=== PATIENT | female | born 1935 | race Caucasian/White ===

== ENCOUNTER 2020-03-03 22:12 | Observation (INO) | payer MEDICARE, OTHER ==
[2020-03-03] MEDS ORDERED: LORazepam 1 MG Tab PO ONE (22:53)
--- NOTE | 2020-03-03 22:56 | EDM.PDOC ---
ED HPI GENERAL MEDICAL PROBLEM - General Chief Complaint: General Stated Complaint: MED[facility] Time Seen by Provider: 03/03/20 22:51 Source of Information: Reports: Patient, EMS, RN Notes Reviewed History Limitations: Reports: No Limitations - History of Present Illness INITIAL COMMENTS - FREE TEXT/NARRATIVE: 84-year-old female presents emergency department a complaint of leg., She states she has a known history of restless leg syndrome and her restless legs have been exacerbated mainly today the point where it is uncomfortable and she cannot sleep, pain is been so intense at times that she has fallen she injured herself and has a large skin tear on her left elbow - Related Data Allergies Allergy/AdvReac Type Severity Reaction Status Date / Time tetracycline [Tetracycline] Allergy Itching Verified 11/01/17 09:09 alendronate sodium AdvReac Muscle Verified 11/01/17 09:09 [From Fosamax] Aches Home Meds: Home Meds Aspirin [Ania Chewable Aspirin] 81 mg PO DAILY 12/30/12 [History] Lisinopril [Zestril] 40 mg PO DAILY 12/30/12 [History] Multivitamin [Multivitamins] 1 each PO DAILY 12/30/12 [History] Vitamin B Complex 1 each PO DAILY 12/30/12 [History] Vitamin E (Dl,Tocopheryl Acet) [Vitamin E] 400 units PO DAILY 12/30/12 [History] Calcium Carbonate/Vitamin D3 [Calcium 500-Vit D3 125 Caplet] 1 tab PO BID 01/07/13 [History] Carbidopa/Levodopa [Carbidopa-Levodopa 25-100] 1 tab PO TID 03/03/20 [History] Celecoxib [CeleBREX] 200 mg PO DAILY 03/03/20 [History] Ferrous Gluconate [Fergon] 225 mg PO DAILY 03/03/20 [History] Furosemide [Lasix] 20 - 80 mg PO DAILY 03/03/20 [History] clonazePAM [Clonazepam] 1 tab PO BID 03/03/20 [History] guaiFENesin [Mucinex] 600 mg PO BID 03/03/20 [History] methazolAMIDE [Methazolamide] 50 mg PO TID 03/03/20 [History] Past Medical History HEENT History: Reports: Cataract Cardiovascular History: Reports: Hypertension 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 Musculoskeletal History: Reports: Osteoarthritis, Other (See Below) (Restless leg syndrome) - Infectious Disease History Infectious Disease History: Reports: Chicken Pox Social & Family History - Family History Family Medical History: No Pertinent Family History - Tobacco Use Tobacco Use Status *Q: Never Tobacco User ED ROS GENERAL - Review of Systems Review Of Systems: See Below Constitutional: Reports: No Symptoms Musculoskeletal: Reports: Leg Pain ED EXAM, GENERAL - Physical Exam Exam: See Below Exam Limited By: No Limitations General Appearance: Alert, Mild Distress Extremities: Normal Inspection, Normal Range of Motion, Non-Tender, No Pedal Edema, Other (Pedal pulse +2) Course - Vital Signs Last Recorded V/S: Last Vital Signs Temp 95 F L 03/03/20 22: Pulse 94 03/03/20 22:26 Resp 20 03/03/20 22:26 BP 137/71 03/03/20 22:26 Pulse Ox 98 03/03/20 22:26 - Orders/Labs/Meds Labs: Laboratory Tests 03/03/20 03/03/20 Range/Units 23:00 23:00 WBC 9.4 (4.5-11.0) K/uL RBC 3.40 (3.30-5.50) M/uL Hgb 10.7 L D (12.0-15.0) g/dL Hct 34.0 L (36.0-48.0) % MCV 100 H (80-98) fL MCH 32 H (27-31) pg MCHC 32 (32-36) % Plt Count 360 (150-400) K/uL Neut % (Auto) 68 H (36-66) % Lymph % (Auto) 16 L (24-44) % [place] % (Auto) 11 H (2-6) % Eos % (Auto) 5 H (2-4) % Baso % (Auto) 0 (0-1) % Sodium 139 L (140-148) mmol/L Potassium 3.9 (3.6-5.2) mmol/L Chloride 104 (100-108) mmol/L Carbon Dioxide 25 (21-32) mmol/L Anion Gap 13.9 (5.0-14.0) mmol/L BUN 51 H D (7-18) mg/dL Creatinine 1.2 H (0.6-1.0) mg/dL Est Cr Clr Drug Dosing 21.69 mL/min Estimated GFR (MDRD) 43 L (>60) Glucose 91 (74-106) mg/dL Calcium 9.1 (8.5-10.1) mg/dL Meds: Medications Discontinued Medications Generic Name Dose Route Start Last Admin Trade Name Francesca PRN Reason Stop Dose Admin Lorazepam 1 mg 03/03/20 22:53 03/03/20 23:01 Ativan PO 03/03/20 22:54 1 mg ONETIME ONE Administration Departure - Departure Time of Disposition: 00:11 Disposition: Home, Self-Care 01 Condition: Fair Clinical Impression: Restless leg syndrome - Discharge Information Instructions: Restless Legs Syndrome Referrals: Johnson Jacobsen MD [Primary Care Provider] - Forms: ED Department Discharge Additional Instructions: Use the Ativan as needed for symptomatic relief on the night she had trouble getting to sleep because your restless legs, please followup with your primary care provider in 3-5 days if not better, please call return to the emergency department with worsening of symptoms. Sepsis Event Note (ED) - Evaluation Sepsis Screening Result: No Definite Risk - Focused Exam Vital Signs: Vital Signs Temp Pulse Resp BP Pulse Ox 03/03/20 22:26 95 F L 94 20 137/71 98 03/03/20 22:25 95 F L 94 20 137/71 98 - Assessment/Plan Plan: Assessment Acuity = acute Site and laterality = restless leg syndrome Etiology = unknown Manifestations = none Location of injury = Home Lab values = hemoglobin low at 10.7 consistent with macro chromic anemia, creatinine elevated 1.2 consistent chronic renal failure stage G3 B Plan She had good improvement with 1 mg Ativan provided in the emergency department prescription written for Ativan 1 mg p.o. nightly as needed total #10 follow-up primary care 3 to 5 days if not better This note was dictated using [employer] voice recognition software please call with any questions on syntax or grammar.
[2020-03-04] MEDS ORDERED: Carbidopa/Levodopa 25-100 MG Tab PO ONE (08:46)
--- NOTE | 2020-03-04 08:56 | PCM.HP.2 ---
H&P History of Present Illness - General Date of Service: 03/04/20 Admit Problem/Dx: Admission Diagnosis/Problem Admission Diagnosis/Problem Weakness Source of Information: Patient, Provider History Limitations: Reports: No Limitations - History of Present Illness Initial Comments - Free Text/Narative: CC: I have restless leg syndrome HPI: Joycelyn presented to the emergency room today after a fall and she had concerns about overactive restless leg syndrome. She reports this is her second fall in the past month or so. No preceding symptoms but she just became weak an d collapsed to the floor. She does not think she lost consciousness. She has a bruise on her left shoulder but is not complaining of any shoulder or arm pain. She does endorse intermittent achy pain in the right groin/proximal femur area. This has been going on for a while and comes and goes. No recent fevers or chills. Appetite and oral intake are reported as good though she does appear dehydrated. No complaints of cough or shortness of breath. No change in bowel or bladder habits. No sick contacts. She continues to live alone. She has been in the emergency room much of the night and did appear to sleep well though she does not think she slept very well. She was too weak to get up and ambulate safely so she will be admitted for observation and physical therapy. There is no evidence for infection at this time. - Related Data Allergies/Adverse Reactions: Allergies Allergy/AdvReac Type Severity Reaction Status Date / Time tetracycline [Tetracycline] Allergy Itching Verified 11/01/17 09:09 alendronate sodium AdvReac Muscle Verified 11/01/17 09:09 [From Fosamax] Aches Home Medications: Home Meds Aspirin [Ania Chewable Aspirin] 81 mg PO DAILY 12/30/12 [History] Lisinopril [Zestril] 40 mg PO DAILY 12/30/12 [History] Multivitamin [Multivitamins] 1 each PO DAILY 12/30/12 [History] Vitamin B Complex 1 each PO DAILY 12/30/12 [History] Vitamin E (Dl,Tocopheryl Acet) [Vitamin E] 400 units PO DAILY 12/30/12 [History] Calcium Carbonate/Vitamin D3 [Calcium 500-Vit D3 125 Caplet] 1 tab PO BID 01/07/13 [History] Carbidopa/Levodopa [Carbidopa-Levodopa 25-100] 1 tab PO TID 03/03/20 [History] Celecoxib [CeleBREX] 200 mg PO DAILY 03/03/20 [History] Ferrous Gluconate [Fergon] 225 mg PO DAILY 03/03/20 [History] Furosemide [Lasix] 20 - 80 mg PO DAILY 03/03/20 [History] clonazePAM [Clonazepam] 1 tab PO BID 03/03/20 [History] guaiFENesin [Mucinex] 600 mg PO BID 03/03/20 [History] methazolAMIDE [Methazolamide] 50 mg PO TID 03/03/20 [History] Past Medical History HEENT History: Reports: Cataract, Hard of Hearing, Impaired Vision Cardiovascular History: Reports: Hypertension 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 disorder of bone/cartilage Neurological History: Reports: Vertigo, Other (See Below) Other Neuro History: restless leg - Infectious Disease History Infectious Disease History: Reports: Chicken Pox - Past Surgical History Musculoskeletal Surgical History: Reports: Joint Replacement Social & Family History - Family History Family Medical History: No Pertinent Family History - Tobacco Use Tobacco Use Status *Q: Never Tobacco User - Alcohol Use Alcohol Use History: No - Recreational Drug Use Recreational Drug Use: No Drug Use in Last 12 Months: No H&P Review of Systems - Review of Systems: Review Of Systems: See Below Free Text/Narrative: A complete 12 point review of systems was obtained. Pertinent positives and negatives are noted in the history of present illness. All other systems were reviewed and were negative except as noted. Exam - Exam Exam: See Below - Vital Signs Vital Signs: Last Vital Signs Temp 35 C L 03/03/20 22:26 Pulse 82 03/04/20 00:05 Resp 18 03/04/20 00:05 BP 127/65 03/04/20 00:05 Pulse Ox 93 L 03/04/20 00:05 Weight: 40.823 kg - Exam Quality Assessment: No: Supplemental Oxygen General: Alert, Oriented, Cooperative. No: Mild Distress HEENT: Conjunctiva Clear. No: Mucosa Moist & [place] (dry), Scleral Icterus Neck: Supple, Trachea Midline. No: Lymphadenopathy, JVD Lungs: Clear to Auscultation, Normal Respiratory Effort Cardiovascular: Regular Rate, Regular Rhythm. No: Systolic Murmur GI/Abdominal Exam: Normal Bowel Sounds, Soft, Non-Tender, No Distention, No Mass Extremities: Pedal Edema. No: Increased Warmth Skin: Warm, Dry, Ecchymosis (left shoulder, left forearm, right wrist), Wound (skin tear left forearm near the elbow ) Neuro Extensive - Mental Status: Alert, Oriented x3, Nl Response to Commands Neuro Extensive - Motor, Sensory, Reflexes: No: Dysarthria, Facial Palsy (R), Facial palsy (L), Abnormal Motor, Tremor Psychiatric: Alert, Normal Affect - Patient Data Lab Results Last 24 hrs: Laboratory Results - last 24 hr 03/03/20 03/03/20 03/04/20 Range/Units 23:00 23:00 06:46 WBC 9.4 7.9 (4.5-11.0) K/uL RBC 3.40 3.34 (3.30-5.50) M/uL Hgb 10.7 L D 10.6 L (12.0-15.0) g/dL Hct 34.0 L 33.1 L (36.0-48.0) % MCV 100 H 99 H (80-98) fL MCH 32 H 32 H (27-31) pg MCHC 32 32 (32-36) % Plt Count 360 366 (150-400) K/uL Neut % (Auto) 68 H 67 H (36-66) % Lymph % (Auto) 16 L 15 L (24-44) % [place] % (Auto) 11 H 12 H (2-6) % Eos % (Auto) 5 H 5 H (2-4) % Baso % (Auto) 0 1 (0-1) % PT (9.5-12.0) sec INR (0.80-1.20) APTT (27.0-36.0) sec Sodium 139 L (140-148) mmol/L Potassium 3.9 (3.6-5.2) mmol/L Chloride 104 (100-108) mmol/L Carbon Dioxide 25 (21-32) mmol/L Anion Gap 13.9 (5.0-14.0) mmol/L BUN 51 H D (7-18) mg/dL Creatinine 1.2 H (0.6-1.0) mg/dL Est Cr Clr Drug Dosing 21.69 mL/min Estimated GFR (MDRD) 43 L (>60) Glucose 91 (74-106) mg/dL Lactic Acid (0.4-2.0) mmol/L Calcium 9.1 (8.5-10.1) mg/dL Iron (50-170) ug/dL TIBC (250-450) ug/dl % Saturation (20-55) % Total Bilirubin (0.2-1.0) mg/dL AST (15-37) U/L ALT (12-78) U/L Alkaline Phosphatase (46-116) U/L Troponin I (0.000-0.056) ng/mL Total Protein (6.4-8.2) g/dL Albumin (3.4-5.0) g/dL Globulin (2.3-3.5) g/dL Albumin/Globulin Ratio (1.2-2.2) 03/04/20 03/04/20 03/04/20 Range/Units 06:46 06:46 06:46 WBC (4.5-11.0) K/uL RBC (3.30-5.50) M/uL Hgb (12.0-15.0) g/dL Hct (36.0-48.0) % MCV (80-98) fL MCH (27-31) pg MCHC (32-36) % Plt Count (150-400) K/uL Neut % (Auto) (36-66) % Lymph % (Auto) (24-44) % [place] % (Auto) (2-6) % Eos % (Auto) (2-4) % Baso % (Auto) (0-1) % PT (9.5-12.0) sec INR (0.80-1.20) APTT (27.0-36.0) sec Sodium 143 (140-148) mmol/L Potassium 4.1 (3.6-5.2) mmol/L Chloride 107 (100-108) mmol/L Carbon Dioxide 26 (21-32) mmol/L Anion Gap 10.4 (5.0-14.0) mmol/L BUN 45 H (7-18) mg/dL Creatinine 1.1 H (0.6-1.0) mg/dL Est Cr Clr Drug Dosing 23.66 mL/min Estimated GFR (MDRD) 47 L (>60) Glucose 84 (74-106) mg/dL Lactic Acid 0.6 (0.4-2.0) mmol/L Calcium 9.1 (8.5-10.1) mg/dL Iron 67 (50-170) ug/dL TIBC 331 (250-450) ug/dl % Saturation 20 (20-55) % Total Bilirubin 0.6 (0.2-1.0) mg/dL AST 43 H D (15-37) U/L ALT 11 L (12-78) U/L Alkaline Phosphatase 122 H D (46-116) U/L Troponin I 0.020 (0.000-0.056) ng/mL Total Protein 6.7 (6.4-8.2) g/dL Albumin 3.3 L (3.4-5.0) g/dL Globulin 3.4 (2.3-3.5) g/dL Albumin/Globulin Ratio 1.0 L (1.2-2.2) 03/04/20 03/04/20 Range/Units 06:46 06:46 WBC (4.5-11.0) K/uL RBC (3.30-5.50) M/uL Hgb (12.0-15.0) g/dL Hct (36.0-48.0) % MCV (80-98) fL MCH (27-31) pg MCHC (32-36) % Plt Count (150-400) K/uL Neut % (Auto) (36-66) % Lymph % (Auto) (24-44) % [place] % (Auto) (2-6) % Eos % (Auto) (2-4) % Baso % (Auto) (0-1) % PT 10.3 (9.5-12.0) sec INR 0.94 (0.80-1.20) APTT 24.8 L (27.0-36.0) sec Sodium (140-148) mmol/L Potassium (3.6-5.2) mmol/L Chloride (100-108) mmol/L Carbon Dioxide (21-32) mmol/L Anion Gap (5.0-14.0) mmol/L BUN (7-18) mg/dL Creatinine (0.6-1.0) mg/dL Est Cr Clr Drug Dosing mL/min Estimated GFR (MDRD) (>60) Glucose (74-106) mg/dL Lactic Acid (0.4-2.0) mmol/L Calcium (8.5-10.1) mg/dL Iron (50-170) ug/dL TIBC (250-450) ug/dl % Saturation (20-55) % Total Bilirubin (0.2-1.0) mg/dL AST (15-37) U/L ALT (12-78) U/L Alkaline Phosphatase (46-116) U/L Troponin I (0.000-0.056) ng/mL Total Protein (6.4-8.2) g/dL Albumin (3.4-5.0) g/dL Globulin (2.3-3.5) g/dL Albumin/Globulin Ratio (1.2-2.2) Result Diagrams: 03/04/20 06:46 03/04/20 06:46 Imaging Impressions Last 24 hrs: XR right hip/thigh-images personally reviewed-bilateral hip arthroplasties. No obvious loosening of hardware. No dislocation. No pelvis fx. Sepsis Event Note - Evaluation Sepsis Screening Result: No Definite Risk - Focused Exam Vital Signs: Vital Signs Temp Pulse Resp BP Pulse Ox 03/04/20 00:05 82 18 127/65 93 L 03/03/20 22:26 35 C L 94 20 137/71 98 03/03/20 22:25 35 C L 94 20 137/71 98 *Q Meaningful Use (ADM) - VTE Risk Assess *Q Each Risk Factor Represents 1 Point: Swollen Legs, Current Total Score 1 Point Risk Factors: 1 Each Risk Factor Represents 2 Points: Malignancy (present or previous) Total Score 2 Point Risk Factors: 2 Each Risk Factor Represents 3 Points: Age 75 Years or Greater Total Score 3 Point Risk Factors: 3 Each Risk Factor Represents 5 Points: None Total Score 5 Point Risk Factors: 0 Venous Thromboembolism Risk Factor Score *Q: 6 - Problem List (1) Weakness generalized SNOMED Code(s): 77681717 ICD Code: R53.1 - WEAKNESS Status: Acute Current Visit: Yes (2) Fall SNOMED Code(s): 9927634, 601289849 ICD Code: W19.XXXA - UNSPECIFIED FALL, INITIAL ENCOUNTER Status: Acute Current Visit: Yes Qualifiers: Encounter type: initial encounter Qualified Code(s): W19.XXXA - Unspecified fall, initial encounter (3) Restless leg syndrome SNOMED Code(s): 26652175 ICD Code: G25.81 - RESTLESS LEGS SYNDROME Status: Chronic Current Visit: Yes Problem List Initiated/Reviewed/Updated: Yes Orders Last 24hrs: Active Orders 24 hr Category Date Time Status Patient Status Manage Transfer [TRANSFER] Routine ADT 03/04/20 08:47 Ordered Hip Min 2V or 3V w Pelvis Rt [CR] Stat Exams 03/04/20 05:08 Taken Sodium Chloride 0.9% [Normal Saline] 1,000 ml Med 03/04/20 09:00 Active IV ASDIRECTED Resuscitation Status Routine Resus Stat 03/04/20 08:49 Ordered Medication Orders Sodium Chloride (Normal Saline) 1,000 mls @ 125 mls/hr IV ASDIRECTED REYNA Stop: 03/04/20 17:01 Assessment/Plan Comment:: ASSESSMENT AND PLAN - Generalized weakness with recurrent falls-2 falls in the past month. Minor i njuries and mostly bruising of the left arm and a skin tear of the left arm. Patient is weak and wobbly on her feet. She has been doing some outpatient physical therapy for the past couple of weeks. No evidence for infection that I can find. She does appear little bit dehydrated and hopefully some fluids will help improve her strength and energy. -1 L of IV fluids -Physical therapy Restless leg syndrome-patient reports increased difficulties. She does admit that she does not take her Sinemet regularly and when she does it has been fairly well controlled. Iron studies are acceptable. She has previously tried ropinirole and pramipexole. -Continue Sinemet -Consider trial of gabapentin Stage III chronic kidney disease-creatinine near recent baseline. There is some evidence for at least mild dehydration. -IV fluids as above Maintenance issues - - DVT prophylaxis -mechanical - GI prophylaxis -not indicated - Nutrition -regular - Aguilar catheter -not indicated CODE STATUS -DNR/DNI Admission justification -patient will be referred observation status for physical therapy and additional observation Disposition -I would anticipate discharge home with home care Primary care physician -Dr Richie Clarke M.D. - Mortality Measure Prognosis:: Good
[2020-03-04] MEDS ORDERED: Sodium Chloride 0.9% 1,000 ML IV SCH (09:00)
--- NOTE | 2020-03-04 09:17 | CR ---
Hip Min 2V or 3V w Pelvis Rt CLINICAL HISTORY: Fall, pain FINDINGS: Patient has a severe S-shaped scoliosis with lumbar convexity to the right. There are severe degenerative changes. 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 Components appear well seated. IMPRESSION: No acute fracture Scoliosis and severe degenerative changes lumbar spine Bilateral hip hemiarthroplasties appear intact
[2020-03-04] MEDS ORDERED: traMADol 50 MG Tab PO PRN (09:18)
[2020-03-04] MEDS ORDERED: LORazepam 2 MG/ML SDV IVPUSH PRN (09:18)
[2020-03-04] MEDS ORDERED: Ondansetron 4 MG Tab.DIS PO PRN (09:18)
[2020-03-04] MEDS ORDERED: Magnesium Hydroxide 400 MG/5 ML Susp 30 ML Cup PO PRN (09:18)
[2020-03-04] MEDS ORDERED: Ondansetron 4 MG/2 ML SDV IV PRN (09:18)
[2020-03-04] MEDS ORDERED: Lisinopril 20 MG Tab PO SCH (10:00)
[2020-03-04] MEDS ORDERED: ClonazePAM 0.5 MG Tab PO SCH (10:00)
[2020-03-04] MEDS ORDERED: Celecoxib 200 MG Cap PO SCH (10:00)
[2020-03-04] MEDS: Carbidopa/Levodopa 25-100 MG Tab (PTOM) PO SCH ×3 (10:47→20:14)
[2020-03-04] MEDS: Aspirin 81 MG Tab.Chew PO SCH (10:48)
[2020-03-04] MEDS: Ferrous Sulfate 325 MG Tab PO SCH (10:48)
[2020-03-04] MEDS: Vitamin B Complex Tab PO SCH (10:48)
[2020-03-04] MEDS ORDERED: ClonazePAM 0.5 MG Tab PO PRN (15:30)
[2020-03-04] MEDS: Melatonin 3 MG Tab PO SCH (20:13)
[2020-03-05] MEDS: Carbidopa/Levodopa 25-100 MG Tab (PTOM) PO SCH ×6 (00:02→21:13)
[2020-03-05] MEDS: Ferrous Sulfate 325 MG Tab PO SCH (08:43)
[2020-03-05] MEDS: Vitamin B Complex Tab PO SCH (08:43)
[2020-03-05] MEDS: Aspirin 81 MG Tab.Chew PO SCH (08:43)
[2020-03-05] MEDS: LISINOPRIL 40MG TAB (PTOM) PO SCH (08:45)
[2020-03-05] MEDS ORDERED: CELECOXIB 200 MG PO SCH (09:00)
--- NOTE | 2020-03-05 09:47 | PCM.PN ---
- General Info Date of Service: 03/05/20 Subjective Update: There were no acute events overnight. Patient slept well. Restless legs are fairly well controlled as long as she takes her Sinemet about every 4 hours. She has not had any fevers. No evidence to support infection. No abdominal pain or nausea. She is quite weak and requires the assist of 2 people. Functional Status: Reports: Pain Controlled, Tolerating Diet - Review of Systems General: Reports: Weakness - Patient Data Vitals - Most Recent: Last Vital Signs Temp 36.4 C 03/05/20 07:00 Pulse 67 03/05/20 07:00 Resp 18 03/05/20 07:00 BP 136/52 L 03/05/20 07:00 Pulse Ox 96 03/05/20 07:00 Weight - Most Recent: 40.823 kg I&O - Last 24 Hours: Intake & Output 03/04/20 03/05/20 03/05/20 22:59 06:59 14:59 Intake Total 480 Output Total 225 85 400 Balance 255 -85 -400 Med Orders - Current: Current Medications Acetaminophen (Tylenol) 650 mg PO Q4H PRN PRN Reason: Pain (Mild 1-3)/fever Aspirin (Aspirin) 81 mg PO DAILY [facility] Last Admin: 03/05/20 08:43 Dose: 81 mg Documented by: Carbidopa/Levodopa (Sinemet 25-100 Mg) 1 tab PO 5XDAY [facility] Celecoxib (Celebrex) 200 mg PO DAILY [facility] Last Admin: 03/05/20 08:45 Dose: 200 mg Documented by: Clonazepam (Klonopin) 0.5 mg PO BID PRN PRN Reason: Agitation Ferrous Sulfate (Ferrous Sulfate) 325 mg PO DAILY [facility] Last Admin: 03/05/20 08:43 Dose: 325 mg Documented by: Lorazepam (Ativan) 0.5 mg IVPUSH Q4H PRN PRN Reason: Nausea/Vomiting Magnesium Hydroxide (Milk Of Magnesia) 30 ml PO Q12H PRN PRN Reason: Constipation Melatonin (Melatonin) 9 mg PO BEDTIME [facility] Last Admin: 03/04/20 20:13 Dose: 9 mg Documented by: Methazolamide (Methazolamide) 50 mg PO TID [facility] Last Admin: 03/05/20 08:46 Dose: 50 mg Documented by: Ondansetron HCl (Zofran) 4 mg IV Q6H PRN PRN Reason: Nausea/Vomiting Ondansetron HCl (Zofran Odt) 4 mg PO Q6H PRN PRN Reason: Nausea able to take PO Lisinopril 40mg Tab ((Ptom)) 0 each PO DAILY [facility] Last Admin: 03/05/20 08:45 Dose: 1 each Documented by: Tramadol HCl (Ultram) 50 mg PO Q6H PRN PRN Reason: Pain (moderate 4-6) Vitamin B Complex (Vitamin B Complex) 1 each PO DAILY [facility] Last Admin: 03/05/20 08:43 Dose: 1 each Documented by: Discontinued Medications Carbidopa/Levodopa (Sinemet 25-100 Mg) 1 tab PO ONETIME ONE Stop: 03/04/20 08:47 Last Admin: 03/04/20 08:55 Dose: 1 tab Documented by: Carbidopa/Levodopa (Sinemet 25-100 Mg) 1 tab PO TID [facility] Last Admin: 03/05/20 08:45 Dose: 1 tab Documented by: Celecoxib (Celebrex) 200 mg PO DAILY [facility] Last Admin: 03/04/20 10:48 Dose: 200 mg Documented by: Clonazepam (Klonopin) 0.5 mg PO BID [facility] Last Admin: 03/04/20 10:49 Dose: Not Given Documented by: Sodium Chloride (Normal Saline) 1,000 mls @ 125 mls/hr IV ASDIRECTED [facility] Stop: 03/04/20 17:01 Last Admin: 03/04/20 10:50 Dose: 125 mls/hr Documented by: Lisinopril (Prinivil) 40 mg PO DAILY [facility] Last Admin: 03/04/20 10:49 Dose: 40 mg Documented by: Lorazepam (Ativan) 1 mg PO ONETIME ONE Stop: 03/03/20 22:54 Last Admin: 03/03/20 23:01 Dose: 1 mg Documented by: Senna/Docusate Sodium (Senna Plus) 1 tab PO BID PRN PRN Reason: Constipation - Exam Quality Assessment: No: Supplemental Oxygen General: Alert, Oriented, Cooperative, No Acute Distress Lungs: Normal Respiratory Effort Cardiovascular: Regular Rate, Regular Rhythm GI/Abdominal Exam: Soft, No Distention Extremities: No Pedal Edema Psy/Mental Status: Alert, Normal Affect Sepsis Event Note - Evaluation Sepsis Screening Result: No Definite Risk - Focused Exam Vital Signs: Vital Signs Temp Pulse Resp BP Pulse Ox 03/05/20 07:00 36.4 C 67 18 136/52 L 96 03/05/20 03:00 36.9 C 77 16 125/65 96 03/04/20 23:00 37.1 C 91 16 122/52 L 95 - Problem List & Annotations (1) Weakness generalized SNOMED Code(s): 05313812 Code(s): R53.1 - WEAKNESS Status: Acute Current Visit: Yes (2) Fall SNOMED Code(s): 9274004, 733748592 Code(s): W19.XXXA - UNSPECIFIED FALL, INITIAL ENCOUNTER Status: Acute Current Visit: Yes Qualifiers: Encounter type: initial encounter Qualified Code(s): W19.XXXA - Unspecified fall, initial encounter (3) Restless leg syndrome SNOMED Code(s): 27165850 Code(s): G25.81 - RESTLESS LEGS SYNDROME Status: Chronic Current Visit: Yes - Problem List Review Problem List Initiated/Reviewed/Updated: Yes - My Orders Last 24 Hours: My Active Orders 03/04/20 08:49 Resuscitation Status Routine 03/04/20 09:18 Acetaminophen [TylenoL] 650 mg PO Q4H PRN LORazepam [Ativan] 0.5 mg IVPUSH Q4H PRN Magnesium Hydroxide [Milk of Magnesia] 30 ml PO Q12H PRN Ondansetron [Zofran ODT] 4 mg PO Q6H PRN Ondansetron [Zofran] 4 mg IV Q6H PRN traMADol [Ultram] 50 mg PO Q6H PRN 03/04/20 09:18 Patient Status [ADT] Routine Antiembolic Devices [RC] .Routine Intake and Output [RC] QSHIFT Notify Provider Vital Signs [RC] ASDIRECTED Oxygen Therapy [RC] PRN Up With Assistance [RC] ASDIRECTED VTE/DVT Education [RC] Per Unit Routine Vital Signs [RC] Q4H OT Evaluation and Treatment [CONS] Routine PT Evaluation and Treatment [CONS] Routine Antiembolic Hose [OM.PC] Routine 03/04/20 10:00 Aspirin 81 mg PO DAILY Ferrous Sulfate 325 mg PO DAILY Vitamin B Complex 1 each PO DAILY 03/04/20 15:30 ClonazePAM [KlonoPIN] 0.5 mg PO BID PRN 03/04/20 21:00 Melatonin 9 mg PO BEDTIME 03/05/20 09:00 Celecoxib [CeleBREX] 200 mg PO DAILY Patient's Own Medication [Ptom] 0 each PO DAILY methazolAMIDE 50 mg PO TID 03/05/20 10:00 Carbidopa/Levodopa [Sinemet 25-100 mg] 1 tab PO 5XDAY - Plan Plan:: ASSESSMENT AND PLAN - Generalized weakness with recurrent falls-2 falls in the past month. Still quite weak and requiring the assist of 2. She is working with physical and Occupational Therapy but I do not think she is going to be strong enough to return to her assisted living environment. -1 L of IV fluids -Physical and occupational therapy Restless leg syndrome-patient reports increased difficulties. Better with regular use of her Sinemet. -Continue Sinemet 5 times daily -Consider trial of gabapentin Stage III chronic kidney disease-improved with hydration. -IV fluids as above Maintenance issues - - DVT prophylaxis -mechanical - GI prophylaxis -not indicated - Nutrition -regular Admission justification -patient will be referred observation status for physical therapy and additional observation Disposition -I would anticipate discharge home with home care Primary care physician -Dr Richie Clarke M.D.
[2020-03-05] MEDS ORDERED: traMADol 50 MG Tab PO PRN (11:09)
[2020-03-05] MEDS: Acetaminophen 325 MG Tab PO PRN (15:42)
[2020-03-05] MEDS ORDERED: oxyCODONE 5 MG Tab PO PRN (16:36)
[2020-03-05] MEDS: Melatonin 3 MG Tab PO SCH (20:34)
[2020-03-06] MEDS: Acetaminophen 325 MG Tab PO PRN (03:11)
[2020-03-06] MEDS: Carbidopa/Levodopa 25-100 MG Tab (PTOM) PO SCH ×5 (05:04→20:59)
[2020-03-06] MEDS: Aspirin 81 MG Tab.Chew PO SCH (08:35)
[2020-03-06] MEDS: Vitamin B Complex Tab PO SCH (08:36)
[2020-03-06] MEDS: Ferrous Sulfate 325 MG Tab PO SCH (08:37)
[2020-03-06] MEDS: LISINOPRIL 40MG TAB (PTOM) PO SCH (08:38)
--- NOTE | 2020-03-06 09:21 | PCM.PN ---
- General Info Date of Service: 03/06/20 Subjective Update: There were no acute events overnight though the patient did have difficulty sleeping because of increased pain that occurred between 2 and 3 AM. Pain persisted until she received her dose of Sinemet this morning around 5 AM. As of the time of my interview her pain has been well controlled. She describes intermittent and short-lived pains in the right groin and proximal thigh area. There seems to be a component of muscle spasm. As long as her restless legs do not fire up she does not have significant pain. Vital signs have been stable. Still requiring significant assistance to get up out of the chair or out of bed. Functional Status: Reports: Pain Controlled, Tolerating Diet - Review of Systems General: Reports: Weakness Musculoskeletal: Reports: Leg Pain - Patient Data Vitals - Most Recent: Last Vital Signs Temp 36.7 C 03/06/20 02:06 Pulse 74 03/06/20 02:06 Resp 16 03/06/20 02:06 BP 115/45 L 03/06/20 02:06 Pulse Ox 97 03/06/20 02:06 Weight - Most Recent: 40.823 kg I&O - Last 24 Hours: Intake & Output 03/05/20 03/06/20 03/06/20 22:59 06:59 14:59 Intake Total 240 Output Total 400 400 Balance -400 -160 Med Orders - Current: Current Medications Acetaminophen (Tylenol) 650 mg PO Q4H PRN PRN Reason: Pain (Mild 1-3)/fever Last Admin: 03/06/20 03:11 Dose: 650 mg Documented by: Aspirin (Aspirin) 81 mg PO DAILY [facility] Last Admin: 03/06/20 08:35 Dose: 81 mg Documented by: Carbidopa/Levodopa (Sinemet 25-100 Mg) 1 tab PO 5XDAY [facility] Last Admin: 03/06/20 05:04 Dose: 1 tab Documented by: Clonazepam (Klonopin) 0.5 mg PO BID PRN PRN Reason: Agitation Last Admin: 03/06/20 02:06 Dose: 0.5 mg Documented by: Ferrous Sulfate (Ferrous Sulfate) 325 mg PO DAILY [facility] Last Admin: 03/06/20 08:37 Dose: 325 mg Documented by: Gabapentin (Neurontin) 100 mg PO BID [facility] Lorazepam (Ativan) 0.5 mg IVPUSH Q4H PRN PRN Reason: Nausea/Vomiting Magnesium Hydroxide (Milk Of Magnesia) 30 ml PO Q12H PRN PRN Reason: Constipation Melatonin (Melatonin) 9 mg PO BEDTIME [facility] Last Admin: 03/05/20 20:34 Dose: 9 mg Documented by: Methazolamide (Methazolamide) 50 mg PO TID [facility] Last Admin: 03/06/20 08:36 Dose: 50 mg Documented by: Ondansetron HCl (Zofran) 4 mg IV Q6H PRN PRN Reason: Nausea/Vomiting Ondansetron HCl (Zofran Odt) 4 mg PO Q6H PRN PRN Reason: Nausea able to take PO Oxycodone HCl (Oxycodone) 2.5 mg PO Q4H PRN PRN Reason: Pain > 4 Last Admin: 03/06/20 03:17 Dose: 2.5 mg Documented by: Lisinopril 40mg Tab ((Ptom)) 0 each PO DAILY [facility] Last Admin: 03/06/20 08:38 Dose: 40 each Documented by: Vitamin B Complex (Vitamin B Complex) 1 each PO DAILY [facility] Last Admin: 03/06/20 08:36 Dose: 1 each Documented by: Discontinued Medications Carbidopa/Levodopa (Sinemet 25-100 Mg) 1 tab PO ONETIME ONE Stop: 03/04/20 08:47 Last Admin: 03/04/20 08:55 Dose: 1 tab Documented by: Carbidopa/Levodopa (Sinemet 25-100 Mg) 1 tab PO TID [facility] Last Admin: 03/05/20 08:45 Dose: 1 tab Documented by: Celecoxib (Celebrex) 200 mg PO DAILY [facility] Last Admin: 03/04/20 10:48 Dose: 200 mg Documented by: Celecoxib (Celebrex) 200 mg PO DAILY [facility] Last Admin: 03/05/20 08:45 Dose: 200 mg Documented by: Clonazepam (Klonopin) 0.5 mg PO BID [facility] Last Admin: 03/04/20 10:49 Dose: Not Given Documented by: Sodium Chloride (Normal Saline) 1,000 mls @ 125 mls/hr IV ASDIRECTED [facility] Stop: 03/04/20 17:01 Last Admin: 03/04/20 10:50 Dose: 125 mls/hr Documented by: Lisinopril (Prinivil) 40 mg PO DAILY [facility] Last Admin: 03/04/20 10:49 Dose: 40 mg Documented by: Lorazepam (Ativan) 1 mg PO ONETIME ONE Stop: 03/03/20 22:54 Last Admin: 03/03/20 23:01 Dose: 1 mg Documented by: Senna/Docusate Sodium (Senna Plus) 1 tab PO BID PRN PRN Reason: Constipation Tramadol HCl (Ultram) 50 mg PO Q6H PRN PRN Reason: Pain (moderate 4-6) Tramadol HCl (Ultram) 50 mg PO Q12H PRN PRN Reason: Pain (moderate 4-6) Last Admin: 03/05/20 16:18 Dose: 50 mg Documented by: - Exam Quality Assessment: No: Supplemental Oxygen General: Alert, Oriented, Cooperative, No Acute Distress Lungs: Normal Respiratory Effort GI/Abdominal Exam: Soft, No Distention Skin: Warm, Dry Psy/Mental Status: Alert, Normal Affect Sepsis Event Note - Evaluation Sepsis Screening Result: No Definite Risk - Focused Exam Vital Signs: Vital Signs Temp Pulse Resp BP Pulse Ox 03/06/20 02:06 36.7 C 74 16 115/45 L 97 - Problem List & Annotations (1) Weakness generalized SNOMED Code(s): 65916738 Code(s): R53.1 - WEAKNESS Status: Acute Current Visit: Yes (2) Fall SNOMED Code(s): 1100603, 760023861 Code(s): W19.XXXA - UNSPECIFIED FALL, INITIAL ENCOUNTER Status: Acute Current Visit: Yes Qualifiers: Encounter type: initial encounter Qualified Code(s): W19.XXXA - Unspecified fall, initial encounter (3) Restless leg syndrome SNOMED Code(s): 82123836 Code(s): G25.81 - RESTLESS LEGS SYNDROME Status: Chronic Current Visit: Yes - Problem List Review Problem List Initiated/Reviewed/Updated: Yes - My Orders Last 24 Hours: My Active Orders 03/05/20 09:00 Patient's Own Medication [Ptom] 0 each PO DAILY methazolAMIDE 50 mg PO TID 03/05/20 10:00 Carbidopa/Levodopa [Sinemet 25-100 mg] 1 tab PO 5XDAY 03/05/20 16:36 oxyCODONE 2.5 mg PO Q4H PRN 03/06/20 09:00 Gabapentin [Neurontin] 100 mg PO BID 03/06/20 22:00 Carbidopa/Levodopa [Sinemet 25-100 mg] 1 tab PO BEDTIME PRN Carbidopa/Levodopa [Sinemet 25-100 mg] 1 tab PO Q24H - Plan Plan:: ASSESSMENT AND PLAN - Generalized weakness with recurrent falls-2 falls in the past month. Still quite weak and requiring significant assistance. She has been working with physical therapy and Occupational Therapy. Unfortunately she is not safe to go back to her assisted living and enough services are not available there. -Physical and occupational therapy Restless leg syndrome-still suboptimal control of symptoms. She is on iron supplementation and her iron level is normal. -Continue Sinemet 5 times daily with extra dose at bedtime and 1 additional dose as needed overnight -Trial of gabapentin twice daily -Consider muscle relaxer at a low dose Stage III chronic kidney disease-improved with hydration. Maintenance issues - - DVT prophylaxis -mechanical - GI prophylaxis -not indicated - Nutrition -regular Admission justification -patient will be referred observation status for physical therapy and additional observation Disposition -I would [facility] [place] [facility] Primary care physician -Dr Richie Clarke M.D.
[2020-03-06] MEDS: Gabapentin 100 MG Cap PO SCH ×2 (09:28→20:55)
[2020-03-06] MEDS ORDERED: Carbidopa/Levodopa 25-100 MG Tab (PTOM) PO ONE (11:40)
[2020-03-06] MEDS: Melatonin 3 MG Tab PO SCH (20:55)
[2020-03-06] MEDS: Carbidopa/Levodopa 25-100 MG **PTOM PO SCH ×2 (20:57→21:00)
[2020-03-06] MEDS ORDERED: Carbidopa/Levodopa 25-100 MG **PTOM PO PRN (22:00)
[2020-03-07] MEDS: Carbidopa/Levodopa 25-100 MG Tab (PTOM) PO SCH ×2 (05:29→10:28)
[2020-03-07] MEDS: Aspirin 81 MG Tab.Chew PO SCH (08:53)
[2020-03-07] MEDS: Ferrous Sulfate 325 MG Tab PO SCH (08:54)
[2020-03-07] MEDS: Vitamin B Complex Tab PO SCH (08:54)
[2020-03-07] MEDS: Gabapentin 100 MG Cap PO SCH (08:54)
--- NOTE | 2020-03-07 10:15 | PCM.DCSUM1 ---
Discharge Summary - Hospital Course Brief History: 84-year-old female with history of restless leg syndrome who presented from assisted living with increased restless leg symptoms and a fall at home. She is admitted for observation and symptom management. Diagnosis: Stroke: No - Discharge Data Discharge Date: 03/07/20 Discharge Disposition: DC/Tfer to SNF 03 Condition: Good - Referral to Home Health Primary Care Physician: Johnson Jacobsen MD - Discharge Diagnosis/Problem(s) (1) Weakness generalized SNOMED Code(s): 60289584 ICD Code: R53.1 - WEAKNESS Status: Acute Current Visit: Yes (2) Fall SNOMED Code(s): 6168809, 369533921 ICD Code: W19.XXXA - UNSPECIFIED FALL, INITIAL ENCOUNTER Status: Acute Current Visit: Yes Qualifiers: Encounter type: initial encounter Qualified Code(s): W19.XXXA - Unspecified fall, initial encounter (3) Restless leg syndrome SNOMED Code(s): 95295088 ICD Code: G25.81 - RESTLESS LEGS SYNDROME Status: Chronic Current Visit: Yes - Patient Summary/Data Consults: Consultations 03/04/20 09:18 OT Evaluation and Treatment [CONS] Routine Please Evaluate and Treat. OT Reason for Consult: ADL's This query below is only for informational purposes and is not editable. PT Evaluation and Treatment [CONS] Routine Please Evaluate and Treat. PT Reason for Consult: Strengthening This query below is only for informational purposes and is not editable. Hospital Course: Joycelyn presented to the emergency room with an exacerbation of her restless leg syndrome complicated by a fall at home. Her fall was complicated by a skin tear involving the left elbow as well as a bruise on her left shoulder. She was complaining of some right groin pain but an x-ray did not show any fracture. She was admitted to the hospital for physical therapy and medication adjustments and potentially correction placement. We made several changes to her restless leg syndrome regimen with what appears to be good results. We have increased her Sinemet to a total of 6 tabs which are scheduled during the day and she has to that she can use as needed. We did start gabapentin which seems to be providing benefit. She does have clonazepam as a backup for severe symptoms not relieved by the Sinemet. She has been working with physical therapy but is currently requiring the assist of 2 people or add a good point one person with a heavy assist to get into and out of bed and into and out of the chair. I think she would benefit from subacute rehab with the goal of returning to her assisted living apartment. We did not find any evidence to support infection during her hospital stay. Her vital signs have all been stable. She is improving with her current treatment plan and I think he has a good prognosis for getting stronger and being able to get out of the transitional care unit and return home. - Patient Instructions Diet: Regular Diet as Tolerated Activity: As Tolerated Showering/Bathing: May Shower Notify Provider of: Increased Pain, Nausea and/or Vomiting Other/Special Instructions: 1. You were in the hospital for management of weakness and significant restless leg syndrome symptoms. Your condition is improving with medication changes. Unfortunately, your strength is not recovering as quickly. I do recommend discharge to a alf facility for subacute rehab with physical and occupational therapy. Medication changes are outlined below. --Take Sinemet 25-100 mg 1 tab 5 times daily (0600,1000,1400,1800,2200). --Take Sinemet 25-100 mg 1 tab at 2200 (total of 2 tabs at 2200). --You may take two additional tabs of Sinemet twice daily as needed for breakthrough restless leg symptoms. --Take gabapentin 100 mg twice daily to help reduce restless leg symptoms. --You may take clonazepam 0.5 mg twice daily as needed for severe restless leg symptoms that are not relieved by Sinemet. 2. I have placed a referral to physical and occupational therapy to provide strengthening exercises while you are at the transitional care unit. 3. CODE STATUS DO NOT RESUSCITATE/DO NOT INTUBATE. 4. Regular geriatric diet. 5. Wound care - left elbow - remove old dressing each day in the morning. Cleanse with saline as needed. Apply bacitracin over the open area of the skin tear. Cover with a nonadherent dressing and then secure with Kerlix followed by Umberto. - Discharge Plan *PRESCRIPTION DRUG MONITORING PROGRAM REVIEWED*: Not Applicable *COPY OF PRESCRIPTION DRUG MONITORING REPORT IN PATIENT ANAYELI: Not Applicable Prescriptions/Med Rec: Bacitracin [Bacitracin Oint] 1 gm TOP DAILY #1 tube Carbidopa/Levodopa [Carbidopa-Levodopa 25-100] 1 tab PO BEDTIME PRN #30 tablet PRN Reason: restless legs Carbidopa/Levodopa [Carbidopa-Levodopa 25-100] 1 tab PO BID PRN #60 tablet PRN Reason: restless legs Carbidopa/Levodopa [Carbidopa-Levodopa 25-100] 1 tab PO 5XDAY #150 tablet clonazePAM [Clonazepam] 1 tab PO BID PRN #30 PRN Reason: restless legs Gabapentin [Neurontin] 100 mg PO BID #60 cap Acetaminophen [Tylenol] 650 mg PO Q4H PRN #200 tablet PRN Reason: Pain (Mild 1-3)/fever Home Medications: Home Meds Aspirin [Ania Chewable Aspirin] 81 mg PO DAILY 12/30/12 [History] Lisinopril [Zestril] 40 mg PO DAILY 12/30/12 [History] Multivitamin [Multivitamins] 1 each PO DAILY 12/30/12 [History] Vitamin B Complex 1 each PO DAILY 12/30/12 [History] Vitamin E (Dl,Tocopheryl Acet) [Vitamin E] 400 units PO DAILY 12/30/12 [History] Calcium Carbonate/Vitamin D3 [Calcium 500-Vit D3 125 Caplet] 1 tab PO BID 01/07/13 [History] Ferrous Gluconate [Fergon] 225 mg PO DAILY 03/03/20 [History] methazolAMIDE [Methazolamide] 50 mg PO TID 03/03/20 [History] Acetaminophen [Tylenol] 650 mg PO Q4H PRN #200 tablet 03/07/20 [Rx] Bacitracin [Bacitracin Oint] 1 gm TOP DAILY #1 tube 03/07/20 [Rx] Carbidopa/Levodopa [Carbidopa-Levodopa 25-100] 1 tab PO 5XDAY #150 tablet 03/07/20 [Rx] Carbidopa/Levodopa [Carbidopa-Levodopa 25-100] 1 tab PO BEDTIME PRN #30 tablet 03/07/20 [Rx] Carbidopa/Levodopa [Carbidopa-Levodopa 25-100] 1 tab PO BID PRN #60 tablet 03/07/20 [Rx] Gabapentin [Neurontin] 100 mg PO BID #60 cap 03/07/20 [Rx] clonazePAM [Clonazepam] 1 tab PO BID PRN #30 03/07/20 [Rx] Patient Handouts: Gabapentin capsules or tablets, Restless Legs Syndrome Referrals: Johnson Jacobsen MD [Primary Care Provider] - (f/u as needed after the [place] rehab stay ) - Discharge Summary/Plan Comment DC Time >30 min.: Yes (40-new [place] discharge ) - Patient Data Vitals - Most Recent: Last Vital Signs Temp 36.6 C 03/07/20 07:00 Pulse 76 03/07/20 07:00 Resp 18 03/07/20 07:00 BP 109/43 L 03/07/20 08:59 Pulse Ox 94 L 03/07/20 07:00 Weight - Most Recent: 40.823 kg I&O - Last 24 hours: Intake & Output 03/06/20 03/07/20 03/07/20 22:59 06:59 14:59 Intake Total 300 Output Total 200 Balance 300 -200 Med Orders - Current: Current Medications Acetaminophen (Tylenol) 650 mg PO Q4H PRN PRN Reason: Pain (Mild 1-3)/fever Last Admin: 03/06/20 03:11 Dose: 650 mg Documented by: Aspirin (Aspirin) 81 mg PO DAILY [facility] Last Admin: 03/07/20 08:53 Dose: 81 mg Documented by: Bacitracin (Bacitracin Oint) 1 gm TOP DAILY [facility] Carbidopa/Levodopa (Sinemet 25-100 Mg) 1 tab PO 5XDAY [facility] Last Admin: 03/07/20 05:29 Dose: 1 tab Documented by: Carbidopa/Levodopa (Sinemet 25-100 Mg) 1 tab PO Q24H [facility] Last Admin: 03/06/20 21:00 Dose: Not Given Documented by: Carbidopa/Levodopa (Sinemet 25-100 Mg) 1 tab PO BEDTIME PRN PRN Reason: restless legs Clonazepam (Klonopin) 0.5 mg PO BID PRN PRN Reason: Agitation Last Admin: 03/06/20 02:06 Dose: 0.5 mg Documented by: Ferrous Sulfate (Ferrous Sulfate) 325 mg PO DAILY [facility] Last Admin: 03/07/20 08:54 Dose: 325 mg Documented by: Gabapentin (Neurontin) 100 mg PO BID [facility] Last Admin: 03/07/20 08:54 Dose: 100 mg Documented by: Lorazepam (Ativan) 0.5 mg IVPUSH Q4H PRN PRN Reason: Nausea/Vomiting Magnesium Hydroxide (Milk Of Magnesia) 30 ml PO Q12H PRN PRN Reason: Constipation Melatonin (Melatonin) 9 mg PO BEDTIME [facility] Last Admin: 03/06/20 20:55 Dose: 9 mg Documented by: Methazolamide (Methazolamide) 50 mg PO TID [facility] Last Admin: 03/07/20 08:54 Dose: 50 mg Documented by: Ondansetron HCl (Zofran) 4 mg IV Q6H PRN PRN Reason: Nausea/Vomiting Ondansetron HCl (Zofran Odt) 4 mg PO Q6H PRN PRN Reason: Nausea able to take PO Last Admin: 03/06/20 19:51 Dose: 4 mg Documented by: Oxycodone HCl (Oxycodone) 2.5 mg PO Q4H PRN PRN Reason: Pain > 4 Last Admin: 03/06/20 03:17 Dose: 2.5 mg Documented by: Lisinopril 40mg Tab ((Ptom)) 0 each PO DAILY [facility] Last Admin: 03/06/20 08:38 Dose: 40 each Documented by: Vitamin B Complex (Vitamin B Complex) 1 each PO DAILY [facility] Last Admin: 03/07/20 08:54 Dose: 1 each Documented by: Discontinued Medications Carbidopa/Levodopa (Sinemet 25-100 Mg) 1 tab PO ONETIME ONE Stop: 03/04/20 08:47 Last Admin: 03/04/20 08:55 Dose: 1 tab Documented by: Carbidopa/Levodopa (Sinemet 25-100 Mg) 1 tab PO TID [facility] Last Admin: 03/05/20 08:45 Dose: 1 tab Documented by: Carbidopa/Levodopa (Sinemet 25-100 Mg) 1 tab PO ONETIME ONE Stop: 03/06/20 11:41 Last Admin: 03/06/20 12:14 Dose: 1 tab Documented by: Celecoxib (Celebrex) 200 mg PO DAILY [facility] Last Admin: 03/04/20 10:48 Dose: 200 mg Documented by: Celecoxib (Celebrex) 200 mg PO DAILY [facility] Last Admin: 03/05/20 08:45 Dose: 200 mg Documented by: Clonazepam (Klonopin) 0.5 mg PO BID [facility] Last Admin: 03/04/20 10:49 Dose: Not Given Documented by: Sodium Chloride (Normal Saline) 1,000 mls @ 125 mls/hr IV ASDIRECTED [facility] Stop: 03/04/20 17:01 Last Admin: 03/04/20 10:50 Dose: 125 mls/hr Documented by: Lisinopril (Prinivil) 40 mg PO DAILY [facility] Last Admin: 03/04/20 10:49 Dose: 40 mg Documented by: Lorazepam (Ativan) 1 mg PO ONETIME ONE Stop: 03/03/20 22:54 Last Admin: 03/03/20 23:01 Dose: 1 mg Documented by: Senna/Docusate Sodium (Senna Plus) 1 tab PO BID PRN PRN Reason: Constipation Tramadol HCl (Ultram) 50 mg PO Q6H PRN PRN Reason: Pain (moderate 4-6) Tramadol HCl (Ultram) 50 mg PO Q12H PRN PRN Reason: Pain (moderate 4-6) Last Admin: 03/05/20 16:18 Dose: 50 mg Documented by:
[2020-03-07] MEDS ORDERED: Bacitracin Oint 28.35 GM Tube TOP SCH (10:45)
[2020-03-07 11:01] VITALS: BP 116/52; PULSE 89
[2020-03-07] MEDS: LISINOPRIL 40MG TAB (PTOM) PO SCH (11:42)
== END 2020-03-07 13:30 ==
LOC: JP.ED 22:12 → JP.ICU 03-04 08:47 → JP.MS 03-06 15:27
PROVIDERS: ADMIT Internal Medicine; ATTEND Internal Medicine
DX: G25.81 Restless legs syndrome (principal); I12.9 Hypertensive chronic kidney disease with stage 1 through stage 4 chronic kidney disease, or unspecified chronic kidney disease; N18.30 Chronic kidney disease, stage 3 unspecified; W19.XXXA Unspecified fall, initial encounter; Z88.1 Allergy status to other antibiotic agents; Z88.8 Allergy status to other drugs, medicaments and biological substances; Z79.82 Long term (current) use of aspirin; Z79.899 Other long term (current) drug therapy
CPT/HCPCS: 36415; 73502; 80048; 80053; 81001; 83550; 83605; 84484; 85025; 85610; 85730; 97116; 97140; 97161; 97165; 97530; 97535; 99217; 99218; 99224; 99225; 99283; 99284; A9270; G0378; J7030

== ENCOUNTER 2020-09-24 10:34 | Emergency (ER) | payer MEDICARE, OTHER ==
[2020-09-24] MEDS ORDERED: Lidocaine 1% with EPINEPHrine 1:100,000 50 ML MDV INFILT ONE (11:10)
--- NOTE | 2020-09-24 11:30 | EDM.PDOC ---
ED HPI GENERAL MEDICAL PROBLEM - General Chief Complaint: Laceration Stated Complaint: MEDICAL VIA NORTH Time Seen by Provider: 09/24/20 10:50 Source of Information: Reports: Patient, EMS History Limitations: Reports: No Limitations - History of Present Illness INITIAL COMMENTS - FREE TEXT/NARRATIVE: 85-year-old female was walking out of a local beauty shop when she stumbled us ing her walker and hit her head on the walkway. She sustained a scalp laceration, has no other complaints such as neck or head pain. She is not on anticoagulants. She has brisk bleeding from the scalp, EMS is applied pressure and she was brought in. Onset: Sudden Duration: Hour(s): (Within the last hour) Location: Reports: Head Associated Symptoms: Reports: No Other Symptoms Posterior Head Pain Score (Numeric/FACES): 4 - Related Data Allergies Allergy/AdvReac Type Severity Reaction Status Date / Time tetracycline [Tetracycline] Allergy Itching Verified 09/24/20 10:42 alendronate sodium AdvReac Muscle Verified 09/24/20 10:42 [From Fosamax] Aches Home Meds: Home Meds Aspirin [Ania Chewable Aspirin] 81 mg PO DAILY 12/30/12 [History] Lisinopril [Zestril] 40 mg PO DAILY 12/30/12 [History] Multivitamin [Multivitamins] 1 each PO DAILY 12/30/12 [History] Vitamin B Complex 1 each PO DAILY 12/30/12 [History] Vitamin E (Dl,Tocopheryl Acet) [Vitamin E] 400 units PO DAILY 12/30/12 [History] Calcium Carbonate/Vitamin D3 [Calcium 500-Vit D3 125 Caplet] 1 tab PO BID 01/07/13 [History] Ferrous Gluconate [Fergon] 225 mg PO DAILY 03/03/20 [History] methazolAMIDE [Methazolamide] 50 mg PO TID 03/03/20 [History] Acetaminophen [Tylenol] 650 mg PO Q4H PRN #200 tablet 03/07/20 [Rx] Carbidopa/Levodopa [Carbidopa-Levodopa 25-100] 1 tab PO 5XDAY #150 tablet 03/07/20 [Rx] Carbidopa/Levodopa [Carbidopa-Levodopa 25-100] 1 tab PO BEDTIME PRN #30 tablet 03/07/20 [Rx] Carbidopa/Levodopa [Carbidopa-Levodopa 25-100] 1 tab PO BID PRN #60 tablet 03/07/20 [Rx] Gabapentin [Neurontin] 100 mg PO BID #60 cap 03/07/20 [Rx] clonazePAM [Clonazepam] 1 tab PO BID PRN #30 03/07/20 [Rx] Furosemide [Lasix] 20 mg PO DAILY 09/24/20 [History] Past Medical History HEENT History: Reports: Cataract, Hard of Hearing, Impaired Vision Cardiovascular History: Reports: Hypertension PERSONNEL REPRESENTATIVE History: Reports: Other (See Below) Other PERSONNEL REPRESENTATIVE History: Yuly and BSO Musculoskeletal History: Reports: Osteoarthritis, Osteoporosis, Other (See Below) Other Musculoskeletal History: degenerative disc disease. disorder of bone/cartilage Neurological History: Reports: Vertigo, Other (See Below) Other Neuro History: restless leg Oncologic (Cancer) History: Reports: Squamous Cell Carcinoma - Infectious Disease History Infectious Disease History: Reports: Chicken Pox - Past Surgical History Musculoskeletal Surgical History: Reports: Hip Replacement, Joint Replacement, Shoulder Surgery Social & Family History - Family History Family Medical History: No Pertinent Family History - Tobacco Use Tobacco Use Status *Q: Never Tobacco User - Caffeine Use Caffeine Use: Reports: None - Recreational Drug Use Recreational Drug Use: No ED ROS GENERAL - Review of Systems Review Of Systems: See Below Constitutional: Denies: Fever, Chills HEENT: Denies: Vision Change Respiratory: Denies: Shortness of Breath Cardiovascular: Denies: Chest Pain GI/Abdominal: Denies: Nausea, Vomiting Skin: Reports: Other (Significant laceration and hemorrhage from the scalp) Neurological: Denies: Dizziness, Headache, Difficulty Walking ED EXAM, SKIN/RASH Exam: See Below Exam Limited By: No Limitations General Appearance: Alert, No Apparent Distress Eye Exam: Bilateral Eye: Normal Inspection Head: Other (3 cm slightly curved laceration on the occiput of the scalp) Neck: Supple, Non-Tender Respiratory/Chest: No Respiratory Distress, Lungs Clear Cardiovascular: Regular Rate, Rhythm Extremities: Normal Inspection Skin: Warm, Dry Course - Vital Signs Last Recorded V/S: Last Vital Signs Temp 96.8 F L 09/24/20 14:43 Pulse 67 09/24/20 14:43 Resp 16 09/24/20 14:43 BP 135/53 L 09/24/20 14:43 Pulse Ox 99 09/24/20 14:43 - Orders/Labs/Meds Orders: Active Orders 24 hr Category Date Time Status PATIENT RETYPE [BBK] Stat Lab 09/24/20 11:30 Results RED BLOOD CELLS LP [BBK] Stat Lab 09/24/20 11:30 Results TYPE AND SCREEN [BBK] Stat Lab 09/24/20 11:30 Results Transfuse Red Blood Cells [COMM] Urgent Oth 09/24/20 11:30 Ordered Labs: Laboratory Tests 09/24/20 09/24/20 Range/Units 11:20 11:30 WBC 4.9 (4.5-11.0) K/uL RBC 2.20 L (3.30-5.50) M/uL Hgb 6.7 L* D (12.0-15.0) g/dL Hct 22.4 L (36.0-48.0) % MCV 102 H (80-98) fL MCH 31 (27-31) pg MCHC 30 L (32-36) % Plt Count 388 (150-400) K/uL Neut % (Auto) 59.0 (36-66) % Lymph % (Auto) 18.1 L (24-44) % [place] % (Auto) 14.2 H (2-6) % Eos % (Auto) 7.7 H (2-4) % Baso % (Auto) 1.0 (0-1) % Blood Type B POSITIVE Gel Antibody Screen Negative Crossmatch See Detail Meds: Medications Discontinued Medications Generic Name Dose Route Start Last Admin Trade Name Freq PRN Reason Stop Dose Admin Lidocaine/Epinephrine 30 ml 09/24/20 11:10 09/24/20 11:49 Lidocaine 1% With Epinephrine 1:100,000 50 Ml Mdv INFILT 09/24/20 11:11 30 ml ONETIME ONE Administration - Re-Assessments/Exams Free Text/Narrative Re-Assessment/Exam: 09/24/20 11:22 85-year-old female was going down a ramp when she stumbled and struck her head on the sidewalk. She was brought in by EMS with briskly bleeding scalp laceration but no other symptoms. Denies any headache or neck pain. 09/24/20 11:30 Area was infiltrated with 1% lidocaine with epinephrine, the hair trimmed back from the edge of the laceration, and after bleeding was controlled the wound was cleaned out of clots and washed with saline. Edges were approximated and 8 kunal were used to close the laceration. She tolerated the procedure well, because of the blood loss and her history of anemia CBC was drawn. Hemoglobin returned only 6.7 09/24/20 13:48 Patient tolerated 1 unit of packed RBCs. I recommended she be rechecked tomorrow for a hemoglobin. Departure - Departure Time of Disposition: 15:42 Disposition: Home, Self-Care 01 Clinical Impression: Anemia, blood loss Occipital scalp laceration Qualifiers: Encounter type: initial encounter Qualified Code(s): S01.01XA - Laceration without foreign body of scalp, initial encounter - Discharge Information Instructions: Laceration Care, Adult, [id number] Referrals: PCP,None [Primary Care Provider] - Forms: ED Department Discharge Care Plan Goals: Keep wound clean while healing, and I would recommend rechecking tomorrow for another hemoglobin check. Kunal can be removed in 8 days. Recheck sooner if concerns of infection or not healing satisfactorily. Sepsis Event Note (ED) - Evaluation Sepsis Screening Result: No Definite Risk - Focused Exam Vital Signs: Vital Signs Temp Temp Pulse Resp BP Pulse Ox 09/24/20 14:43 96.8 F L 67 16 135/53 L 99 09/24/20 14:30 96.8 F L 71 16 139/61 91 L 09/24/20 14:16 97.2 F 87 16 124/63 99 09/24/20 14:01 97.2 F 91 16 166/72 H 99 09/24/20 13:46 97.1 F 89 16 164/77 H 99 09/24/20 10:47 97.8 F 62 16 131/52 L 98 - My Orders Last 24 Hours: My Active Orders 09/24/20 11:30 PATIENT RETYPE [BBK] Stat RED BLOOD CELLS LP [BBK] Stat TYPE AND SCREEN [BBK] Stat Transfuse Red Blood Cells [COMM] Urgent - Assessment/Plan Last 24 Hours: My Active Orders 09/24/20 11:30 PATIENT RETYPE [BBK] Stat RED BLOOD CELLS LP [BBK] Stat TYPE AND SCREEN [BBK] Stat Transfuse Red Blood Cells [COMM] Urgent
[2020-09-24 14:44] VITALS: BP 135/53; PULSE 67
== END 2020-09-24 15:30 | disposition home or self-care (01) ==
LOC: JP.ED 10:34
DX: S01.01XA Laceration without foreign body of scalp, initial encounter (principal); D62 Acute posthemorrhagic anemia; I10 Essential (primary) hypertension; M19.90 Unspecified osteoarthritis, unspecified site; Z79.82 Long term (current) use of aspirin; Z79.891 Long term (current) use of opiate analgesic; Z79.899 Other long term (current) drug therapy; Z88.1 Allergy status to other antibiotic agents; W22.09XA Striking against other stationary object, initial encounter
CPT/HCPCS: 12002; 36415; 36430; 85025; 86850; 86900; 86901; 86920; 86922; 99283-25; P9016

== ENCOUNTER 2020-11-13 09:50 | Emergency (ER) | payer MEDICARE, OTHER ==
--- NOTE | 2020-11-13 10:59 | EDM.PDOC ---
ED HPI GENERAL MEDICAL PROBLEM - General Chief Complaint: General Stated Complaint: MEDICAL Time Seen by Provider: 11/13/20 10:45 Source of Information: Reports: Patient History Limitations: Reports: No Limitations - History of Present Illness INITIAL COMMENTS - FREE TEXT/NARRATIVE: This is an 85-year-old female with history of anemia, work-up is ongoing into the allergy, presents with concerns of low hemoglobin. She is having her hemoglobin monitored on a weekly basis. Today was noted to be 6.5. She was directed to the ED for blood transfusion. She denies any no dizziness, weakness, chest pain, or shortness of breath. No blood or black stools. She has no acute medical concerns. - Related Data Allergies Allergy/AdvReac Type Severity Reaction Status Date / Time tetracycline [Tetracycline] Allergy Itching Verified 11/13/20 10:23 alendronate sodium AdvReac Muscle Verified 11/13/20 10:23 [From Fosamax] Aches Home Meds: Home Meds Aspirin [Ania Chewable Aspirin] 81 mg PO DAILY 12/30/12 [History] Lisinopril [Zestril] 40 mg PO DAILY 12/30/12 [History] Vitamin B Complex 1 each PO DAILY 12/30/12 [History] Vitamin E (Dl,Tocopheryl Acet) [Vitamin E] 400 units PO DAILY 12/30/12 [History] Calcium Carbonate/Vitamin D3 [Calcium 500-Vit D3 125 Caplet] 1 tab PO BID 01/07/13 [History] Ferrous Gluconate [Fergon] 300 mg PO DAILY 03/03/20 [History] methazolAMIDE [Methazolamide] 50 mg PO TID 03/03/20 [History] Acetaminophen [Tylenol] 650 mg PO Q4H PRN #200 tablet 03/07/20 [Rx] Gabapentin [Neurontin] 100 mg PO BID #60 cap 03/07/20 [Rx] clonazePAM [Clonazepam] 1 tab PO BID PRN #30 03/07/20 [Rx] Furosemide [Lasix] 20 mg PO DAILY 09/24/20 [History] Ascorbic Acid 500 mg PO DAILY 10/16/20 [History] Carbidopa/Levodopa [Carbidopa-Levodopa 25-100] 1 tab PO ASDIRECTED 10/16/20 [History] Carbidopa/Levodopa [Carbidopa-Levodopa 25-100] 2 tab PO BEDTIME PRN 10/16/20 [History] Cerovite Senior 1 tab PO DAILY 10/16/20 [History] Cyanocobalamin (Vitamin B-12) [B-12] 1,000 mcg PO DAILY 10/16/20 [History] Naproxen Sodium 220 mg PO BID 10/16/20 [History] Sennosides [Senna] 8.6 mg PO DAILY 10/16/20 [History] traMADol [Ultram] 50 mg PO BEDTIME 10/16/20 [History] Past Medical History HEENT History: Reports: Cataract, Hard of Hearing, Impaired Vision Cardiovascular History: Reports: Hypertension STOCK PULLER History: Reports: Other (See Below) Other STOCK PULLER History: Yuly and BSO Musculoskeletal History: Reports: Osteoarthritis, Osteoporosis, Other (See Below) Other Musculoskeletal History: degenerative disc disease. disorder of bon e/cartilage Neurological History: Reports: Vertigo, Other (See Below) Other Neuro History: restless leg Hematologic History: Reports: Anemia Other Hematologic History: bone marrow biopsy Oncologic (Cancer) History: Reports: Squamous Cell Carcinoma - Infectious Disease History Infectious Disease History: Reports: Chicken Pox - Past Surgical History Musculoskeletal Surgical History: Reports: Hip Replacement, Joint Replacement, Shoulder Surgery Social & Family History - Family History Family Medical History: No Pertinent Family History - Tobacco Use Tobacco Use Status *Q: Never Tobacco User - Caffeine Use Caffeine Use: Reports: None ED ROS GENERAL - Review of Systems Review Of Systems: See Below Constitutional: Reports: No Symptoms HEENT: Reports: No Symptoms Respiratory: Reports: No Symptoms Cardiovascular: Reports: No Symptoms Endocrine: Reports: No Symptoms GI/Abdominal: Reports: No Symptoms : Reports: No Symptoms Musculoskeletal: Reports: No Symptoms Skin: Reports: No Symptoms Neurological: Reports: No Symptoms Psychiatric: Reports: No Symptoms Hematologic/Lymphatic: Reports: No Symptoms Immunologic: Reports: No Symptoms ED EXAM, GENERAL - Physical Exam Exam: See Below Exam Limited By: No Limitations General Appearance: Alert, No Apparent Distress Ears: Normal External Exam Nose: Normal Inspection Throat/Mouth: Normal Inspection Head: Atraumatic, Normocephalic Neck: Normal Inspection Respiratory/Chest: Lungs Clear Cardiovascular: Regular Rate, Rhythm GI/Abdominal: Soft, Non-Tender Extremities: Normal Inspection Neurological: Alert, Oriented Psychiatric: Normal Affect, Normal Mood Skin Exam: Warm, Dry Course - Vital Signs Last Recorded V/S: Last Vital Signs Temp 35.8 C L 11/13/20 14:16 Pulse 77 11/13/20 14:16 Resp 16 11/13/20 14:16 BP 133/68 11/13/20 14:16 Pulse Ox 97 11/13/20 11:20 - Orders/Labs/Meds Orders: Active Orders 24 hr Category Date Time Status Sodium Chloride 0.9% [Normal Saline] 1,000 ml Med 11/13/20 11:15 Active IV ASDIRECTED Medication Orders Sodium Chloride (Normal Saline) 1,000 mls @ 0 mls/hr IV ASDIRECTED REYNA Last Admin: 11/13/20 11:28 Dose: 25 mls/hr Documented by: PREILOR Labs: Laboratory Tests 11/13/20 11/13/20 Range/Units 10:36 10:50 WBC 4.3 L (4.5-11.0) K/uL RBC 2.18 L (3.30-5.50) M/uL Hgb 6.8 L* (12.0-15.0) g/dL Hct 22.3 L (36.0-48.0) % MCV 102 H (80-98) fL MCH 31 (27-31) pg MCHC 31 L (32-36) % Plt Count 340 (150-400) K/uL Neut % (Auto) 53.9 (36-66) % Lymph % (Auto) 21.2 L (24-44) % [place] % (Auto) 17.2 H (2-6) % Eos % (Auto) 6.1 H (2-4) % Baso % (Auto) 1.6 H (0-1) % Blood Type B POSITIVE Gel Antibody Screen Negative Crossmatch See Detail Meds: Medications Generic Name Dose Route Start Last Admin Trade Name Freq PRN Reason Stop Dose Admin Sodium Chloride 1,000 mls @ 0 mls/hr 11/13/20 11:15 11/13/20 11:28 Normal Saline IV 25 mls/hr ASDIRECTED REYNA Administration KVO - Re-Assessments/Exams Free Text/Narrative Re-Assessment/Exam: This is an 85-year-old female who presents with concerns of asymptomatic anemia. Work-up into the etiology has been ongoing. She has required intermittent blood transfusions. Today she is here as her screening hemoglobin was 6.5. On repeat it is 6.8. She denies any symptoms with this. No blood in the stools. No acute medical concerns for us, looking for blood transfusion. Vitals are stable. We have arranged for her to be transfused with a unit of PRBCs. She will follow up with her primary doctor. 11/13/20 14:47 Departure - Departure Time of Disposition: 14:00 Disposition: Home, Self-Care 01 Clinical Impression: Anemia Qualifiers: Anemia type: unspecified type Qualified Code(s): D64.9 - Anemia, unspecified - Discharge Information Referrals: Yvette Mclean MD [Primary Care Provider] - Forms: ED Department Discharge Additional Instructions: Please make a plan with your primary doctor for ongoing management of your anemia. Thank you for trusting us to care for you today. Sepsis Event Note (ED) - Focused Exam Vital Signs: Vital Signs Temp Temp Pulse Resp BP Pulse Ox 11/13/20 14:16 35.8 C L 77 16 133/68 11/13/20 14:01 35.9 C L 72 16 113/57 L 11/13/20 13:46 35.8 C L 69 16 116/55 L 11/13/20 13:31 35.7 C L 63 16 120/59 L 11/13/20 11:20 58 L 16 113/45 L 97 11/13/20 10:21 36.0 C L 62 16 110/42 L 98 - My Orders Last 24 Hours: My Active Orders 11/13/20 11:15 Sodium Chloride 0.9% [Normal Saline] 1,000 ml IV ASDIRECTED - Assessment/Plan Last 24 Hours: My Active Orders 11/13/20 11:15 Sodium Chloride 0.9% [Normal Saline] 1,000 ml IV ASDIRECTED
[2020-11-13] MEDS ORDERED: Sodium Chloride 0.9% 1,000 ML IV SCH (11:15)
[2020-11-13 15:10] VITALS: BP 111/57; PULSE 74
== END 2020-11-13 15:10 | disposition home or self-care (01) ==
LOC: JP.ED 09:50
DX: D64.9 Anemia, unspecified (principal); I10 Essential (primary) hypertension; M19.90 Unspecified osteoarthritis, unspecified site; Z88.1 Allergy status to other antibiotic agents; Z88.8 Allergy status to other drugs, medicaments and biological substances; Z79.82 Long term (current) use of aspirin; Z79.899 Other long term (current) drug therapy
CPT/HCPCS: 36415; 36430; 85025; 86850; 86900; 86901; 86920; 86922; 99284; J7030; P9016

== ENCOUNTER 2020-12-20 07:23 | Emergency (ER) | payer MEDICARE, OTHER ==
[2020-12-20 07:33] VITALS: BP 138/43; PULSE 51
--- NOTE | 2020-12-20 07:33 | EDM.PDOC ---
ED HPI GENERAL MEDICAL PROBLEM - General Chief Complaint: Lower Extremity Injury/Pain Stated Complaint: FALL VIA NORTH Time Seen by Provider: 12/20/20 07:25 Source of Information: Reports: Patient, EMS, Old Records History Limitations: Reports: No Limitations - History of Present Illness INITIAL COMMENTS - FREE TEXT/NARRATIVE: 85 yo female presents via EMS with a R knee injury from a fall this AM. She lives at a local assisted living facility. She says the pain is tolerable if she does not move it and denies pain to any other areas. She is not on anticoagulants other than ASA. She states she was reaching for her walker and missed it and fell. Onset: Today, Sudden Onset Date: 12/20/20 Duration: Minutes: Location: Reports: Lower Extremity, Right Quality: Reports: Ache Severity: Mild (at rest) Improves with: Reports: Rest Worsens with: Reports: Movement Context: Reports: Trauma Associated Symptoms: Reports: No Other Symptoms Treatments RETIREMENT SPECIALIST: Reports: Other (see below) (none) Right Knee Pain Score (Numeric/FACES): 10 - Related Data Allergies Allergy/AdvReac Type Severity Reaction Status Date / Time tetracycline [Tetracycline] Allergy Itching Verified 12/20/20 07:36 alendronate sodium AdvReac Muscle Verified 12/20/20 07:36 [From Fosamax] Aches Home Meds: Home Meds Aspirin [Ania Chewable Aspirin] 81 mg PO DAILY 12/30/12 [History] Lisinopril [Zestril] 40 mg PO DAILY 12/30/12 [History] Vitamin B Complex 1 each PO DAILY 12/30/12 [History] Vitamin E (Dl,Tocopheryl Acet) [Vitamin E] 400 units PO DAILY 12/30/12 [History] methazolAMIDE [Methazolamide] 50 mg PO TID 03/03/20 [History] Acetaminophen [Tylenol] 650 mg PO Q4H PRN #200 tablet 03/07/20 [Rx] Gabapentin [Neurontin] 100 mg PO BID #60 cap 03/07/20 [Rx] Furosemide [Lasix] 20 mg PO DAILY 09/24/20 [History] Ascorbic Acid 500 mg PO DAILY 10/16/20 [History] Carbidopa/Levodopa [Carbidopa-Levodopa 25-100] 1 tab PO ASDIRECTED 10/16/20 [History] Cerovite Senior 1 tab PO DAILY 10/16/20 [History] Cyanocobalamin (Vitamin B-12) [B-12] 1,000 mcg PO DAILY 10/16/20 [History] Naproxen Sodium 220 mg PO BID 10/16/20 [History] traMADol [Ultram] 25 mg PO BEDTIME 10/16/20 [History] Carbidopa/Levodopa [Carbidopa-Levo ER 50-200] 1 tab PO BEDTIME 12/03/20 [History] Epoetin Juan M [Procrit] 1 ml SUBCUT Q7D 12/03/20 [History] Ferrous Gluconate 324 mg PO DAILY 12/03/20 [History] clonazePAM [Clonazepam] 0.5 mg PO DAILY 12/03/20 [History] Past Medical History HEENT History: Reports: Cataract, Hard of Hearing, Impaired Vision Cardiovascular History: Reports: Hypertension VENUE MANAGER History: Reports: Other (See Below) Other VENUE MANAGER History: Yuly and BSO Musculoskeletal History: Reports: Osteoarthritis, Osteoporosis, Other (See Below) Other Musculoskeletal History: degenerative disc disease. disorder of bone/cartilage Neurological History: Reports: Vertigo, Other (See Below) Other Neuro History: restless leg Hematologic History: Reports: Anemia Other Hematologic History: bone marrow biopsy Oncologic (Cancer) History: Reports: Squamous Cell Carcinoma - Infectious Disease History Infectious Disease History: Reports: Chicken Pox - Past Surgical History Musculoskeletal Surgical History: Reports: Hip Replacement, Joint Replacement, Shoulder Surgery Social & Family History - Family History Family Medical History: No Pertinent Family History - Caffeine Use Caffeine Use: Reports: None Review of Systems - Review of Systems Review Of Systems: See Below Constitutional: Reports: No Symptoms Respiratory: Reports: No Symptoms Cardiovascular: Reports: No Symptoms Musculoskeletal: Reports: Joint Pain (R knee), Joint Swelling (R knee) Skin: Reports: Bruising (R knee) Neurological: Reports: No Symptoms ED EXAM, GENERAL - Physical Exam Exam: See Below Exam Limited By: No Limitations General Appearance: Alert, WD/WN, No Apparent Distress Eye Exam: Bilateral Eye: Normal Inspection Ears: Normal External Exam, Normal Canal, Hearing Grossly Normal Ear Exam: Bilateral Ear: Auricle Normal, Canal Normal Nose: Normal Inspection, No Blood Throat/Mouth: Normal Inspection, Normal Lips, Normal Oropharynx, Normal Voice, No Airway Compromise Head: Atraumatic, Normocephalic Neck: Normal Inspection Respiratory/Chest: No Respiratory Distress, Lungs Clear, Normal Breath Sounds, No Accessory Muscle Use Cardiovascular: Regular Rate, Rhythm, No Edema GI/Abdominal: Soft, Non-Tender Extremities: Joint Swelling (R knee very swollen and ecchymotic ), Limited Range of Motion (R knee due to pain and swelling). No: Normal Inspection, Non-Tender Neurological: Alert, Oriented, CN II-XII Intact, Normal Cognition, No Motor/Sensory Deficits Psychiatric: Normal Affect, Normal Mood Skin Exam: Ecchymosis (R knee) Course - Vital Signs Last Recorded V/S: Last Vital Signs Temp 35.5 C L 12/20/20 07:32 Pulse 51 L 12/20/20 07:32 Resp 18 12/20/20 07:32 BP 138/43 L 12/20/20 07:32 Pulse Ox 99 12/20/20 07:32 - Orders/Labs/Meds Orders: Active Orders 24 hr Category Date Time Status Knee wo Cont Rt [CT] Stat Exams 12/20/20 08:15 Ordered Meds: Medications Discontinued Medications Generic Name Dose Route Start Last Admin Trade Name Freq PRN Reason Stop Dose Admin Carbidopa/Levodopa 1 tab 12/20/20 10:21 Carbidopa/Levodopa 50-200 Mg Tab.Er PO 12/20/20 10:22 ONETIME ONE - Radiology Interpretation Free Text/Narrative:: X-ray of the R knee-no fx noted, large amt of swelling. CT of the R knee-IMPRESSION: Moderately large subcutaneous hematoma with a roughly 10.5 cm craniocaudal length. Please note that all CT scans at this facility use dose modulation, iterative reconstruction, and/or weight-based dosing when appropriate to reduce radiation dose to as low as reasonably achievable. Dictated by Evens Nelson MD @ 12/20/2020 10:19:[address] Results Date: 12/20/20 CT Results Time: 10:22 Departure - Departure Time of Disposition: 10:40 Disposition: Home, Self-Care 01 Condition: Fair Clinical Impression: Traumatic hematoma of right knee Qualifiers: Encounter type: initial encounter Qualified Code(s): S80.01XA - Contusion of right knee, initial encounter - Discharge Information *PRESCRIPTION DRUG MONITORING PROGRAM REVIEWED*: Not Applicable *COPY OF PRESCRIPTION DRUG MONITORING REPORT IN PATIENT ANAYELI: Not Applicable Instructions: Hematoma Referrals: PCP,Unknown [Primary Care Provider] - Forms: ED Department Discharge Additional Instructions: Herve wrap for a week except when bathing. Acetaminophen for pain relief as needed. Recheck as needed. Sepsis Event Note (ED) - Focused Exam Vital Signs: Vital Signs Temp Pulse Resp BP Pulse Ox 12/20/20 07:32 35.5 C L 51 L 18 138/43 L 99 - My Orders Last 24 Hours: My Active Orders 12/20/20 08:15 Knee wo Cont Rt [CT] Stat - Assessment/Plan Last 24 Hours: My Active Orders 12/20/20 08:15 Knee wo Cont Rt [CT] Stat
--- NOTE | 2020-12-20 08:49 | CRLCR ---
For Patients: As a result of the Cures Act, medical imaging exams and procedure reports are released immediately into your electronic medical record. You may view this report before your referring provider. If you have questions, please contact your health care provider. INDICATION: Trauma. Fall. Pain. TECHNIQUE: Two views of the right knee. FINDINGS: Significant soft tissue swelling anterior to the right knee and about the patella both above and below the patella compatible with a large soft tissue hematoma. No underlying fracture or dislocation identified. The medial and lateral compartments are fairly well preserved. IMPRESSION: Large soft tissue hematoma/swelling anterior to the right knee. Dictated by Desmond Norwood MD @ 12/20/2020 8:46:40 AM (Electronically Signed)
[2020-12-20] MEDS ORDERED: Carbidopa/Levodopa 50-200 MG Tab.ER PO ONE (10:21)
[2020-12-20] MEDS ORDERED: Acetaminophen 325 MG Tab PO ONE (10:28)
--- NOTE | 2020-12-22 06:32 | CRLCT ---
Final Report: INDICATION: Swelling. Injury. COMPARISON: Plain film same date. TECHNIQUE: Noncontrast multidetector imaging centered on the right knee with axial, coronal and sagittal 2D reformats. FINDINGS: Large relatively heterogeneous mostly intermediate to high attenuation hematoma in the subcutaneous soft tissues of the ventral distal thighs and across the knee more pronounced medially. No effusion in the joint. No disruption of quadriceps or patellar tendon appreciated. No intramuscular hematoma. Moderate fatty replacement of muscles in the calf and semimembranosus. Osteopenia. No fracture or bone lesion. Joint spaces are maintained with no significant degenerative or inflammatory finding. IMPRESSION: Moderately large subcutaneous hematoma with a roughly 10.5 cm craniocaudal length. Please note that all CT scans at this facility use dose modulation, iterative reconstruction, and/or weight-based dosing when appropriate to reduce radiation dose to as low as reasonably achievable. Dictated by Evens Nelson MD @ 12/20/2020 10:19:48 AM Signed by: Evens Nelson MD @12/20/2020 10:19:48 AM (Electronic Signature) MTDD
== END 2020-12-20 11:47 | disposition home or self-care (01) ==
LOC: JP.ED 07:23
DX: S80.01XA Contusion of right knee, initial encounter (principal); M19.90 Unspecified osteoarthritis, unspecified site; I10 Essential (primary) hypertension; Z88.1 Allergy status to other antibiotic agents; Z79.82 Long term (current) use of aspirin; Z79.899 Other long term (current) drug therapy; Z88.8 Allergy status to other drugs, medicaments and biological substances; W18.39XA Other fall on same level, initial encounter
CPT/HCPCS: 73560; 73700; 99284; A9270; 73562-RT

== ENCOUNTER 2021-03-22 08:20 | Emergency (ER) | payer MEDICARE, OTHER ==
[2021-03-22 08:26] VITALS: BP 149/56; PULSE 59
== END 2021-03-22 10:25 | disposition home or self-care (01) ==
LOC: JP.ED 08:20
DX: S81.811A Laceration without foreign body, right lower leg, initial encounter (principal); S00.03XA Contusion of scalp, initial encounter; I10 Essential (primary) hypertension; M19.90 Unspecified osteoarthritis, unspecified site; Z88.1 Allergy status to other antibiotic agents; Z88.8 Allergy status to other drugs, medicaments and biological substances; Z79.82 Long term (current) use of aspirin; Z79.899 Other long term (current) drug therapy; W01.0XXA Fall on same level from slipping, tripping and stumbling without subsequent striking against object, initial encounter; Y92.009 Unspecified place in unspecified non-institutional (private) residence as the place of occurrence of the external cause
CPT/HCPCS: 70450; 99283; 99284-25

== ENCOUNTER 2021-05-24 08:46 | Emergency (ER) | payer MEDICARE, OTHER ==
[2021-05-24 08:51] VITALS: PULSE 61
[2021-05-24 09:27] VITALS: BP 94/46
== END 2021-05-24 09:46 ==
LOC: JP.ED 08:46
DX: I62.00 Nontraumatic subdural hemorrhage, unspecified (principal); I61.9 Nontraumatic intracerebral hemorrhage, unspecified; I10 Essential (primary) hypertension; Z88.1 Allergy status to other antibiotic agents; Z88.8 Allergy status to other drugs, medicaments and biological substances; Z79.82 Long term (current) use of aspirin; Z79.899 Other long term (current) drug therapy; Z20.822 Contact with and (suspected) exposure to COVID-19
CPT/HCPCS: 36415; 70450; 80053; 85025; 85610; 99285; 99285-25; U0002

== ENCOUNTER 2021-12-27 19:12 | Inpatient (IN) | payer MEDICARE, OTHER ==
[2021-12-27] MEDS ORDERED: Sodium Chloride 0.9% 1,000 ML IV ONE (19:57)
[2021-12-27] MEDS ORDERED: Sodium Chloride 0.9% 10 ML Syringe FLUSH PRN (19:57)
[2021-12-27 20:38] LABS: ESTIMATED GFR 54 mL/min (>60); TROPONIN I HIGH SENSITIVITY 14.9 pg/mL (<=60.3)
[2021-12-27] MEDS ORDERED: Carbidopa/Levodopa 50-200 MG Tab.ER PO SCH (21:00)
[2021-12-27] MEDS ORDERED: Albuterol/Ipratropium 3.0-0.5 MG/3 ML Neb Soln NEB ONE (21:09)
[2021-12-27] MEDS ORDERED: ClonazePAM 0.5 MG Tab PO PRN (22:28)
[2021-12-27] MEDS ORDERED: Gabapentin 100 MG Cap PO SCH (22:31)
[2021-12-27] MEDS ORDERED: cefTRIAXone 1 GM in Sodium Chloride 0.9% 50 ML IV ONE (22:38)
[2021-12-27] MEDS ORDERED: Acetaminophen 325 MG Tab PO ONE (22:45)
[2021-12-27] MEDS ORDERED: Azithromycin 500 MG in Sodium Chloride 0.9% 250 ML IV SCH (22:45)
[2021-12-28 00:06] LABS: CORONAVIRUS COVID-19 NAA NEGATIVE (NEGATIVE)
[2021-12-28] MEDS ORDERED: Sodium Chloride 0.9% 1,000 ML IV SCH (00:16)
[2021-12-28] MEDS ORDERED: Ondansetron 4 MG Tab.DIS PO PRN (00:16)
[2021-12-28] MEDS ORDERED: Benzonatate 100 MG Cap PO PRN (00:16)
[2021-12-28] MEDS ORDERED: guaiFENesin/Dextromethorphan 100-10 MG/5 ML Soln 10 ML Cup PO PRN (00:16)
[2021-12-28] MEDS ORDERED: Magnesium Hydroxide 400 MG/5 ML Susp 30 ML Cup PO PRN (00:16)
[2021-12-28] MEDS ORDERED: Ondansetron 4 MG/2 ML SDV IV PRN (00:16)
[2021-12-28] MEDS ORDERED: Melatonin 3 MG Tab PO PRN (00:16)
[2021-12-28] MEDS: Carbidopa/Levodopa 25-100 MG Tab PO SCH ×5 (02:36→18:18)
[2021-12-28] MEDS: ClonazePAM 0.5 MG Tab PO SCH ×2 (08:08→21:57)
[2021-12-28] MEDS: Aspirin 81 MG Tab.Chew PO SCH (09:09)
[2021-12-28] MEDS: Lactobacillus Rhamnosus GG (Probiotic) Cap PO SCH ×2 (09:09→21:57)
[2021-12-28] MEDS: Enoxaparin 30 MG/0.3 ML Syringe SUBCUT SCH (09:10)
[2021-12-28] MEDS: Gabapentin 100 MG Cap PO SCH ×2 (09:10→21:57)
[2021-12-28] MEDS: Lisinopril 20 MG Tab PO SCH (09:10)
[2021-12-28] MEDS: Cyanocobalamin (Vitamin B12) 1,000 MCG Tab PO SCH (09:10)
[2021-12-28] MEDS: Acetaminophen 325 MG Tab PO PRN (17:01)
[2021-12-28] MEDS: Albuterol 0.083% 2.5 MG/3 ML Neb Soln NEB PRN (17:01)
[2021-12-28] MEDS: METHAZOLAMIDE 50 MG PO SCH (19:02)
[2021-12-28] MEDS ORDERED: Gabapentin 100 MG Cap PO SCH (21:00)
[2021-12-28] MEDS: cefTRIAXone 1 GM in Sodium Chloride 0.9% 50 ML IV SCH (21:51)
[2021-12-28] MEDS: Azithromycin 250 MG Tab PO SCH (21:57)
[2021-12-28] MEDS: Carbidopa/Levodopa 50-200 MG Tab.ER PO SCH (21:58)
[2021-12-29] MEDS: Carbidopa/Levodopa 25-100 MG Tab PO SCH ×5 (04:59→19:33)
[2021-12-29] MEDS: METHAZOLAMIDE 50 MG PO SCH ×3 (07:29→15:18)
[2021-12-29] MEDS: Lactobacillus Rhamnosus GG (Probiotic) Cap PO SCH ×2 (08:33→22:29)
[2021-12-29] MEDS: Gabapentin 100 MG Cap PO SCH ×2 (08:33→22:30)
[2021-12-29] MEDS: Lisinopril 20 MG Tab PO SCH (08:33)
[2021-12-29] MEDS: Enoxaparin 30 MG/0.3 ML Syringe SUBCUT SCH (08:34)
[2021-12-29] MEDS: Cyanocobalamin (Vitamin B12) 1,000 MCG Tab PO SCH (08:34)
[2021-12-29] MEDS: ClonazePAM 0.5 MG Tab PO SCH ×3 (08:34→22:29)
[2021-12-29] MEDS: Aspirin 81 MG Tab.Chew PO SCH (08:35)
[2021-12-29] MEDS ORDERED: Potassium Chloride 20 MEQ Tab.ER PO ONE ×2 (09:30→17:00)
[2021-12-29] MEDS: Albuterol 0.083% 2.5 MG/3 ML Neb Soln NEB PRN (11:03)
[2021-12-29] MEDS: methylPREDNISolone Sodium Succinate 40 MG/1 ML SDV IVPUSH SCH ×2 (13:49→22:30)
[2021-12-29] MEDS: Albuterol/Ipratropium 3.0-0.5 MG/3 ML Neb Soln NEB SCH ×2 (14:58→22:25)
[2021-12-29] MEDS: Acetaminophen 325 MG Tab PO PRN (16:19)
[2021-12-29] MEDS ORDERED: traMADol 50 MG Tab PO PRN (17:10)
[2021-12-29] MEDS: cefTRIAXone 1 GM in Sodium Chloride 0.9% 50 ML IV SCH (22:21)
[2021-12-29] MEDS: Azithromycin 250 MG Tab PO SCH (22:29)
[2021-12-29] MEDS: Carbidopa/Levodopa 50-200 MG Tab.ER PO SCH (22:29)
[2021-12-30] MEDS: Carbidopa/Levodopa 25-100 MG Tab PO SCH ×5 (02:42→19:09)
[2021-12-30] MEDS: methylPREDNISolone Sodium Succinate 40 MG/1 ML SDV IVPUSH SCH ×3 (07:07→21:11)
[2021-12-30] MEDS: Albuterol/Ipratropium 3.0-0.5 MG/3 ML Neb Soln NEB SCH ×4 (07:26→21:08)
[2021-12-30] MEDS: METHAZOLAMIDE 50 MG PO SCH ×3 (07:30→15:19)
[2021-12-30] MEDS: Aspirin 81 MG Tab.Chew PO SCH (09:55)
[2021-12-30] MEDS: Lactobacillus Rhamnosus GG (Probiotic) Cap PO SCH ×2 (09:55→21:08)
[2021-12-30] MEDS: Enoxaparin 30 MG/0.3 ML Syringe SUBCUT SCH (09:56)
[2021-12-30] MEDS: Lisinopril 20 MG Tab PO SCH (09:56)
[2021-12-30] MEDS: Gabapentin 100 MG Cap PO SCH ×2 (09:56→21:09)
[2021-12-30] MEDS: Cyanocobalamin (Vitamin B12) 1,000 MCG Tab PO SCH (09:57)
[2021-12-30] MEDS: ClonazePAM 0.5 MG Tab PO SCH ×3 (10:27→21:08)
[2021-12-30] MEDS ORDERED: EPOETIN ALFA 10000 UNIT/1 ML SUBCUT ONE (11:00)
[2021-12-30] MEDS: Carbidopa/Levodopa 50-200 MG Tab.ER PO SCH (21:11)
[2021-12-30] MEDS: Azithromycin 250 MG Tab PO SCH (21:11)
[2021-12-30] MEDS: cefTRIAXone 1 GM in Sodium Chloride 0.9% 50 ML IV SCH (21:22)
[2021-12-31] MEDS: Carbidopa/Levodopa 25-100 MG Tab PO SCH ×5 (02:35→19:28)
[2021-12-31] MEDS: methylPREDNISolone Sodium Succinate 40 MG/1 ML SDV IVPUSH SCH ×3 (05:58→22:34)
[2021-12-31] MEDS: Albuterol/Ipratropium 3.0-0.5 MG/3 ML Neb Soln NEB SCH ×4 (07:30→20:22)
[2021-12-31] MEDS: METHAZOLAMIDE 50 MG PO SCH ×3 (07:44→15:06)
[2021-12-31] MEDS: Lisinopril 20 MG Tab PO SCH (08:05)
[2021-12-31] MEDS: Cyanocobalamin (Vitamin B12) 1,000 MCG Tab PO SCH (08:05)
[2021-12-31] MEDS: Enoxaparin 30 MG/0.3 ML Syringe SUBCUT SCH (08:06)
[2021-12-31] MEDS: Aspirin 81 MG Tab.Chew PO SCH (08:06)
[2021-12-31] MEDS: Gabapentin 100 MG Cap PO SCH ×2 (08:06→20:23)
[2021-12-31] MEDS: Lactobacillus Rhamnosus GG (Probiotic) Cap PO SCH ×2 (08:06→20:23)
[2021-12-31] MEDS: ClonazePAM 0.5 MG Tab PO SCH ×3 (08:13→20:22)
[2021-12-31] MEDS: Carbidopa/Levodopa 50-200 MG Tab.ER PO SCH (20:23)
[2021-12-31] MEDS: cefTRIAXone 1 GM in Sodium Chloride 0.9% 50 ML IV SCH (20:23)
[2021-12-31] MEDS: Azithromycin 250 MG Tab PO SCH (20:24)
[2022-01-01] MEDS: Carbidopa/Levodopa 25-100 MG Tab PO SCH ×5 (02:52→18:12)
[2022-01-01] MEDS: methylPREDNISolone Sodium Succinate 40 MG/1 ML SDV IVPUSH SCH ×3 (05:49→21:31)
[2022-01-01] MEDS: Albuterol/Ipratropium 3.0-0.5 MG/3 ML Neb Soln NEB SCH ×4 (07:20→20:21)
[2022-01-01] MEDS: METHAZOLAMIDE 50 MG PO SCH ×3 (07:29→15:07)
[2022-01-01] MEDS: Lisinopril 20 MG Tab PO SCH (09:12)
[2022-01-01] MEDS: Enoxaparin 30 MG/0.3 ML Syringe SUBCUT SCH (09:13)
[2022-01-01] MEDS: Cyanocobalamin (Vitamin B12) 1,000 MCG Tab PO SCH (09:13)
[2022-01-01] MEDS: Lactobacillus Rhamnosus GG (Probiotic) Cap PO SCH ×2 (09:13→20:24)
[2022-01-01] MEDS: ClonazePAM 0.5 MG Tab PO SCH ×3 (09:13→20:43)
[2022-01-01] MEDS: Aspirin 81 MG Tab.Chew PO SCH (09:13)
[2022-01-01] MEDS: Gabapentin 100 MG Cap PO SCH ×2 (09:13→20:25)
[2022-01-01] MEDS ORDERED: Sodium Chloride 0.9% 500 ML IV ONE (17:58)
[2022-01-01] MEDS: cefTRIAXone 1 GM in Sodium Chloride 0.9% 50 ML IV SCH (20:21)
[2022-01-01] MEDS: Sodium Chloride 0.9% 1,000 ML IV SCH (20:23)
[2022-01-01] MEDS: Azithromycin 250 MG Tab PO SCH (20:25)
[2022-01-01] MEDS: Carbidopa/Levodopa 50-200 MG Tab.ER PO SCH (20:25)
[2022-01-02] MEDS: Sodium Chloride 0.9% 1,000 ML IV SCH ×2 (00:22→11:15)
[2022-01-02] MEDS: Albuterol 0.083% 2.5 MG/3 ML Neb Soln NEB PRN (00:39)
[2022-01-02] MEDS: Carbidopa/Levodopa 25-100 MG Tab PO SCH ×6 (03:32→20:05)
[2022-01-02] MEDS: methylPREDNISolone Sodium Succinate 40 MG/1 ML SDV IVPUSH SCH (05:25)
[2022-01-02] MEDS: Albuterol/Ipratropium 3.0-0.5 MG/3 ML Neb Soln NEB SCH ×4 (07:01→20:04)
[2022-01-02] MEDS: METHAZOLAMIDE 50 MG PO SCH ×3 (08:00→16:40)
[2022-01-02] MEDS: Lactobacillus Rhamnosus GG (Probiotic) Cap PO SCH ×2 (08:23→20:04)
[2022-01-02] MEDS: Aspirin 81 MG Tab.Chew PO SCH (08:23)
[2022-01-02] MEDS: Lisinopril 20 MG Tab PO SCH (08:24)
[2022-01-02] MEDS: Enoxaparin 30 MG/0.3 ML Syringe SUBCUT SCH (08:27)
[2022-01-02] MEDS: Cyanocobalamin (Vitamin B12) 1,000 MCG Tab PO SCH (08:32)
[2022-01-02] MEDS: Gabapentin 100 MG Cap PO SCH ×2 (09:06→20:06)
[2022-01-02] MEDS: ClonazePAM 0.5 MG Tab PO SCH ×3 (09:06→20:10)
[2022-01-02] MEDS: Azithromycin 250 MG Tab PO SCH (20:04)
[2022-01-02] MEDS: Carbidopa/Levodopa 50-200 MG Tab.ER PO SCH (20:06)
[2022-01-02] MEDS: cefTRIAXone 1 GM in Sodium Chloride 0.9% 50 ML IV SCH (20:10)
[2022-01-03] MEDS: Carbidopa/Levodopa 25-100 MG Tab PO SCH ×7 (03:42→20:39)
[2022-01-03] MEDS: Albuterol/Ipratropium 3.0-0.5 MG/3 ML Neb Soln NEB SCH ×4 (07:13→20:38)
[2022-01-03] MEDS: METHAZOLAMIDE 50 MG PO SCH ×4 (07:53→16:19)
[2022-01-03] MEDS ORDERED: Potassium Chloride 20 MEQ Tab.ER PO ONE ×2 (08:30→12:30)
[2022-01-03] MEDS: ClonazePAM 0.5 MG Tab PO SCH ×3 (09:00→20:38)
[2022-01-03] MEDS: Cyanocobalamin (Vitamin B12) 1,000 MCG Tab PO SCH (11:56)
[2022-01-03] MEDS: Aspirin 81 MG Tab.Chew PO SCH (11:56)
[2022-01-03] MEDS: predniSONE 20 MG Tab PO SCH (11:58)
[2022-01-03] MEDS: Gabapentin 100 MG Cap PO SCH ×2 (12:00→20:40)
[2022-01-03] MEDS: Lisinopril 20 MG Tab PO SCH (12:04)
[2022-01-03] MEDS: Lactobacillus Rhamnosus GG (Probiotic) Cap PO SCH ×2 (12:07→20:38)
[2022-01-03] MEDS: Enoxaparin 30 MG/0.3 ML Syringe SUBCUT SCH (12:15)
[2022-01-03] MEDS: cefTRIAXone 1 GM in Sodium Chloride 0.9% 50 ML IV SCH (20:37)
[2022-01-03] MEDS: Carbidopa/Levodopa 50-200 MG Tab.ER PO SCH (20:39)
[2022-01-03] MEDS: Azithromycin 250 MG Tab PO SCH (20:39)
[2022-01-04] MEDS: Carbidopa/Levodopa 25-100 MG Tab PO SCH ×6 (03:15→19:39)
[2022-01-04] MEDS: Albuterol 0.083% 2.5 MG/3 ML Neb Soln NEB PRN (03:19)
[2022-01-04] MEDS: Sodium Chloride 0.9% 1,000 ML IV SCH (05:29)
[2022-01-04] MEDS: METHAZOLAMIDE 50 MG PO SCH ×3 (07:09→16:24)
[2022-01-04] MEDS: Albuterol/Ipratropium 3.0-0.5 MG/3 ML Neb Soln NEB SCH ×4 (07:26→20:47)
[2022-01-04] MEDS: Enoxaparin 30 MG/0.3 ML Syringe SUBCUT SCH (09:19)
[2022-01-04] MEDS: Lactobacillus Rhamnosus GG (Probiotic) Cap PO SCH ×2 (09:19→20:47)
[2022-01-04] MEDS: predniSONE 20 MG Tab PO SCH (09:19)
[2022-01-04] MEDS: Lisinopril 20 MG Tab PO SCH (09:19)
[2022-01-04] MEDS: Cyanocobalamin (Vitamin B12) 1,000 MCG Tab PO SCH (09:19)
[2022-01-04] MEDS: Aspirin 81 MG Tab.Chew PO SCH (09:20)
[2022-01-04] MEDS: Gabapentin 100 MG Cap PO SCH ×2 (09:20→21:20)
[2022-01-04] MEDS: ClonazePAM 0.5 MG Tab PO SCH ×3 (09:22→21:20)
[2022-01-04] MEDS: LORazepam ORAL Concentrate 1MG/0.5ML U/D PO PRN ×3 (18:06→22:26)
[2022-01-04] MEDS: Morphine 10 MG/0.5 ML Oral Syringe PO PRN ×3 (20:54→23:44)
[2022-01-04] MEDS: Carbidopa/Levodopa 50-200 MG Tab.ER PO SCH (21:20)
[2022-01-04 21:38] VITALS: BP 201/95
[2022-01-05] MEDS: Carbidopa/Levodopa 25-100 MG Tab PO SCH ×3 (02:06→10:16)
[2022-01-05] MEDS: Morphine 10 MG/0.5 ML Oral Syringe PO PRN ×3 (04:27→10:09)
[2022-01-05] MEDS: Albuterol/Ipratropium 3.0-0.5 MG/3 ML Neb Soln NEB SCH ×2 (07:06→10:16)
[2022-01-05] MEDS: LORazepam ORAL Concentrate 1MG/0.5ML U/D PO PRN (07:38)
[2022-01-05] MEDS: METHAZOLAMIDE 50 MG PO SCH ×2 (07:46→10:16)
[2022-01-05 07:47] VITALS: PULSE 96
[2022-01-05] MEDS: Aspirin 81 MG Tab.Chew PO SCH (08:35)
[2022-01-05] MEDS: Cyanocobalamin (Vitamin B12) 1,000 MCG Tab PO SCH (08:35)
[2022-01-05] MEDS: predniSONE 20 MG Tab PO SCH (08:35)
[2022-01-05] MEDS: Lisinopril 20 MG Tab PO SCH (08:35)
[2022-01-05] MEDS: Gabapentin 100 MG Cap PO SCH (08:35)
[2022-01-05] MEDS: Lactobacillus Rhamnosus GG (Probiotic) Cap PO SCH (08:35)
[2022-01-05] MEDS: ClonazePAM 0.5 MG Tab PO SCH (08:35)
== END 2022-01-05 10:35 | disposition expired | DRG 193 ==
LOC: JP.ED 19:12 → JP.ICU 12-28 00:01
PROVIDERS: ADMIT Internal Medicine; ATTEND Internal Medicine
DX: J12.1 Respiratory syncytial virus pneumonia (principal); J96.01 Acute respiratory failure with hypoxia; G25.81 Restless legs syndrome; Z51.5 Encounter for palliative care; Z66 Do not resuscitate; J18.9 Pneumonia, unspecified organism; H54.7 Unspecified visual loss; H91.90 Unspecified hearing loss, unspecified ear; I10 Essential (primary) hypertension; M19.90 Unspecified osteoarthritis, unspecified site; M81.0 Age-related osteoporosis without current pathological fracture; F41.9 Anxiety disorder, unspecified; D64.9 Anemia, unspecified; Z96.649 Presence of unspecified artificial hip joint; Z86.16 Personal history of COVID-19; Z86.19 Personal history of other infectious and parasitic diseases; Z79.82 Long term (current) use of aspirin; J45.909 Unspecified asthma, uncomplicated; Z88.1 Allergy status to other antibiotic agents; Z88.8 Allergy status to other drugs, medicaments and biological substances; Z98.890 Other specified postprocedural states; Z79.899 Other long term (current) drug therapy; Z20.822 Contact with and (suspected) exposure to COVID-19
CPT/HCPCS: 0241U; 36415; 36600; 71046; 71250; 80048; 80053; 82803; 83605; 83880; 84145; 84484; 85025; 85379; 87040; 93005; 94640; 96365; 96367; 97110; 97161; 97530; 97535; 99285; A9270-GY; J0456; J0696; J0885; J1650; J2405; J2920; J3490; J7030; J7040; J7050; J7512; J7620